=== PATIENT | male | born 1960 | race Caucasian/White ===

== ENCOUNTER 2020-02-12 13:48 | Outpatient (CLI) | payer BC, SELFPAY ==
--- NOTE | 2020-02-12 14:15 | US_ITS ---
WS: [id number] RENAL ULTRASOUND REASON FOR EXAM: LEFT RIGHT FLANK PAIN TECHNIQUE: Grayscale and Doppler ultrasound examination of the kidneys. FINDINGS: Right kidney: Right kidney measures 12.4 cm x 5.7 cm x 5.1 cm. No hydronephrosis or stones Left kidney: Left kidney measures 11.3 cm x 5.9 cm x 6.6 cm. Hydronephrosis or stones The aorta is normal measured 2.18 cm. Bladder not well distended IMPRESSION: Negative renal ultrasound
== END 2020-02-12 13:49 | disposition home or self-care (01) ==
LOC: US 13:50
PROVIDERS: Visit Provider Internal Medicine
DX: R10.12 Left upper quadrant pain (principal); R10.11 Right upper quadrant pain
CPT/HCPCS: 76770

== ENCOUNTER 2020-03-19 08:03 | Outpatient (CLI) | payer BC, SELFPAY ==
--- NOTE | 2020-03-19 08:09 | CT_ITS ---
WS: [id number] CT ABDOMEN TECHNIQUE: Noncontrast CT of the abdomen with coronal and sagittal reformatted images. CLINICAL INFORMATION: LESION OF LIVER COMPARISON: Comparison ultrasound February 12, 2020 and DLP: 888.[address] scans at [facility] use at least one of these dose optimization techniques: automat ed exposure control; mA and/or kV adjustment per patient size (includes targeted exams where dose is matched to clinical indication); or iterative reconstruction. FINDINGS: Noncontrast CT abdomen pelvis. Noncontrast kidneys are normal. No hydronephrosis. No obstructing rafita l calculi in the visualized ureters. Pelvis is not included on this examination. Adrenal glands are n ormal. Mild hepatomegaly with enlargement of the right hepatic lobe. Noncontrast liver is otherwise u nremarkable. Noncontrast spleen is normal. Normal GE junction. Lung bases are well aerated. Fatty atr ophy of the pancreas. Gallbladder is contracted. No periaortic lymphadenopathy. No abdominal lymphade nopathy. CT/CT abdomen wo con [id number] IMPRESSION: 1. No obstructing renal or ureteral calculi. Pelvis is not included on this ex amination. No hydronephrosis. 2. Liver appears unremarkable, although no contrast was administered. Mild enl argement of the right hepatic lobe. 3. Gallbladder is contracted. 4. No acute abdominal findings.
== END 2020-03-19 08:04 | disposition home or self-care (01) ==
LOC: RADWPI 08:07
PROVIDERS: Family Provider Internal Medicine; PCP Internal Medicine; Visit Provider Internal Medicine
DX: K76.89 Other specified diseases of liver (principal)
CPT/HCPCS: 74150

== ENCOUNTER 2020-08-15 06:49 | Outpatient (CLI) | payer BC, SELFPAY ==
[2020-08-15 07:25] VITALS: BMI 29.5
--- NOTE | 2020-08-15 07:48 | ECG_ITS ---
[facility] Test Date: 2020-08-15 Pat Name: Polo Britt Department: Room: Gender: Male Weed Controller: : 1960 Requested By: Fátima Palomo Order Number: [id number] Carlos Fontana MD: SANDIE MARCOS Interpretive Statements NAME OF STUDY: LEXISCAN SESTAMIBI STRESS TEST INDICATION: Chest Pain; Coronary Artery Disease NOTE: Please note that this is the electrocardiogram portion of the Lexiscan/Sestamibi stress test. The perfusion scan will be documented separately. DATA: Baseline heart rate was 59 beats per minute. Baseline blood pressure was 141/80 millimeters of mercury. Target heart rate was 163. Maximum heart rate achieved was 88. which was 53 % of the predicted target heart rate. Maximum blood pressure was 147/92 millimeters of mercury. The reason for ending the test was completion of the protocol. The patient did not experience any symptoms. ELECTROCARDIOGRAM: BASELINE: Sinus rhythm. Normal axis. Otherwise, no ST-T changes suggestive of ischemia noted. No arrhythmia noted. EXERCISE: After Lexiscan injection, no ST-T changes suggestive of ischemic noted. No arrhythmia noted. 1. EKG not suggestive of ischemia 2. Lexiscan injection unremarkable. 3. Perfusion scan will be documented separately. Electronically Signed On 08-15-2020 19:31:57 PUBLIC TRANSIT BUS DRIVER by SANDIE MARCOS [id number]
--- NOTE | 2020-08-15 07:50 | NMCV_ITS ---
NM cherie perf SPECT r/s* [id number] Polo Britt Age: 59 Gender: M : 1960 Exam Date: 08/15/2020 07:57 Ordering Phys: Fátima Gastelum MD Technologist: EDGAR Pretty Exam Location: [facility] Indications: CHEST PAIN STRESS TEST Please see separate stress test report in Ephiphany for full findings IMAGE PROTOCOL Rest/Stress 1 Lexiscan Day Radiopharmaceutical Dose (mCi) Administration Site Administered by Rest: Tc-99m 10.7 IV EDGAR Flower Sestamibi Stress:Tc-99m 32.4 IV EDGAR Flower Sestamibi Rest: 15-Aug-2020 60 Discovery 630 Stress: 15-Aug-2020 30 Discovery 630 0.4mg Lexiscan. Supine position only as patient was unable to lay prone. SPECT RESULTS Technical Quality: Excellent Raw Data Analysis: Normal Image Corrections: No attenuation or motion correction applied Summed Stress Score: 12 Summed Rest Score: 15 Summed Difference Score: 1 PERFUSION FINDINGS Large area of fixed perfusion defect noted in basal to distal inferior and distal infero lateral wall suggestive of old myocardial infarction versus scarring. FUNCTIONAL RESULTS (calculated via Gated SPECT) Stress Image LV EF (%): 52 Stress EDV (mL):125 TID: 1.01 Stress ESV (mL):60 Rest Image LV EF (%): 52 FUNCTIONAL FINDINGS: Inferior and inferolateral wall akinesis IMPRESSIONS Large area of old myocardial infarction versus scarring noted in basal to distal inferior and distal inferolateral wall without kellie-infarct ischemia. EKG segment is documented separately Darrel Kaur MD (Electronically Signed) Final Date: 15 August 2020 19:17 S
[2020-08-15] MEDS: regadenoson 0.4 Mg/5 ml Syringe IVP (08:43)
--- NOTE | 2020-08-15 08:43 | SUR.PREOP ---
Patient reports no pain or discomfort prior to the start of the procedure.
[2020-08-15 09:08] VITALS: BP 143/86; PULSE 71
== END 2020-08-15 06:50 | disposition home or self-care (01) ==
LOC: CDL 06:49
PROVIDERS: PCP Internal Medicine; Visit Provider Internal Medicine
DX: I25.2 Old myocardial infarction (principal); R07.9 Chest pain, unspecified
CPT/HCPCS: 78452; 93017; A9500; J2785

== ENCOUNTER → 2020-08-17 10:36 | Outpatient (BNVA) | payer BC, SELFPAY | PROVIDERS: PCP Internal Medicine; Visit Provider Internal Medicine | DX: U07.1 COVID-19 (principal) | CPT/HCPCS: 87635 ==

== ENCOUNTER 2020-08-21 08:02 | Outpatient (CLI) | payer BC, SELFPAY ==
--- NOTE | 2020-08-21 14:35 | PFTS_ITS ---
Date of Study:08/21/20 Date of Dictation: 08/22/2020 MECHANICS: Forced vital capacity (FVC) is reduced Forced expiratory volume in one second (FEV1) is moderately reduced FEV1/FVC is reduced. Significant response to bronchodilators noted FLOW VOLUME LOOP: Scooping of end expiratory limb suggestive of small airway obstruction . LUNG VOLUMES: Not measured DIFFUSING CAPACITY FOR CARBON MONOXIDE: Not measured . INTERPRETATION: The spirometry suggestive of moderately severe obstructive ventilatory defect with good response to bronchodilators. Please correlate clinically MTDD
== END 2020-08-21 08:03 | disposition home or self-care (01) ==
LOC: RT 08:03
PROVIDERS: PCP Internal Medicine; Visit Provider Internal Medicine
DX: R05 Cough (principal)
CPT/HCPCS: 94060; J7611

== ENCOUNTER 2021-10-08 20:00 | Outpatient (CLI) | payer OTHER, SELFPAY | END 2021-10-08 20:01 | disposition home or self-care (01) | LOC: SLEEP 10-09 06:27 | PROVIDERS: PCP Internal Medicine; Visit Provider Internal Medicine | DX: G47.10 Hypersomnia, unspecified (principal); R06.83 Snoring; R53.83 Other fatigue; G47.33 Obstructive sleep apnea (adult) (pediatric); R09.02 Hypoxemia | CPT/HCPCS: 95810 ==

== ENCOUNTER 2022-05-01 07:08 | Observation (INO) | payer OTHER, SELFPAY ==
[2022-05-01] VITALS (72 sets, daily range): BP systolic 107–155; BP diastolic 60–92; PULSE 54–85; RESP 14–26; TEMP 36.3–36.8; O2SAT 94–100; BMI 29.7
--- NOTE | 2022-05-01 07:13 | W.ED.CHESTPA ---
HPI - Chest Pain General: Chief Complaint: ER Hold Stated Complaint: chest pain Time Seen by Provider: 05/01/22 07:09 Source: patient Mode of arrival: ambulatory Limitations: no limitations History of Present Illness: 61-year-old male presents emergency room with complaints of chest discomfort. Patient has a known history of coronary disease and previously had a ST elevation [place], he underwent angiography and was stented at that time. According to his notes he has had a stent in the proximal to mid RCA which was placed in July 2018 he also had a prior stent in the LAD and the diagonal. Lexiscan sestamibi stress test July 2020 showed large area of old myocardial infarct with no kellie-infarct ischemia. States pain began yesterday he was not doing anything exertional lasted for several hours and then resolved spontaneously. Resumed again this morning that woke him up from sleep around 5 AM he took a sublingual nitro he states that improved his pain. MD complaint: chest pain Pertinent past history: coronary artery disease Onset (ago): day(s) (1) Timing of current episode: episodic Prior episodes: Yes Onset: during rest Pain location: left chest Severity: moderate Quality: sharp Relieving factors: nitroglycerin (Improved but not resolved) Exacerbating factors: nothing Associated symptoms: Reports dyspnea; Deny abdominal pain, diaphoresis, fever(s), leg edema, nausea, palpitations, sense of impending doom, syncope or vomiting Treatment prior to arrival: nitroglycerin Review of Systems Const: Denies: fever(s), chills, fatigue, malaise or diaphoresis ENMT: Denies: throat pain, ear or mastoid pain, nasal discharge or nasal congestion Card: Reports: chest pain; Denies: palpitations, irregular heart rhythm, edema or syncope Resp: Reports: dyspnea GI: Denies: abdominal pain, nausea or vomiting : Denies: flank pain, dysuria, urinary frequency or urinary urgency Skin/Breast: Denies: rash or pruritus PFSH ED PFSH: Medical History (Updated 05/01/22 @ 13:15 by Adrienne Rosales MD) BPH (benign prostatic hyperplasia) COPD (chronic obstructive pulmonary disease) Coronary artery disease Diabetes mellitus History of ST elevation myocardial infarction (STEMI) HTN (hypertension) Hyperlipidemia Hypothyroidism Tobacco dependency Surgical History History of coronary angioplasty with insertion of stent (~2017) S/P appendectomy S/P cardiac catheterization [facility] Family History Other Cancer Diabetes Heart disease Hypertension Denies family history of Anesthesia complication Bleeding disorder Social History Smoking and tobacco status: current some day smoker Second hand smoke exposure: No Alcohol intake: current Alcohol intake frequency: holidays/special occasions only Alcohol type: beer Adopted: No Caregiver/support person: Yes Lives independently: Yes Household members: spouse Housing: House Marital status: service: No Current occupational status: retired Current occupational exposures/hazards: No Pets and animals: No History of recent travel: No Sexually active: Yes Current gender identity: Male Elisabeth/Pentecostalism: Rastafari Physical Exam Const: GENERAL APPEARANCE: cooperative and comfortable ORIENTATION/CONSCIOUSNESS: Yes awake, Yes oriented to person, Yes oriented to place and Yes oriented to time HENMT: COMMON NORMALS: normocephalic, atraumatic and hearing grossly normal bilaterally HEAD & SCALP: normocephalic and atraumatic Resp: COMMON NORMALS: normal respiratory effort, No retractions, No use of accessory muscles and clear to auscultation bilaterally AUSCULTATION: clear to auscultation bilaterally Cardio: COMMON NORMALS: regular rate, regular rhythm and No murmurs present (Cardio) RATE: regular rate RHYTHM: regular rhythm GI: COMMON NORMALS: Soft to palpation and No hepatosplenomegaly present AUSCULTATION: Yes normoactive bowel sounds PALPATION: Yes Soft to palpation, No Tenderness to palpation present (GI), No Guarding due to palpation present (GI) and Yes No hepatosplenomegaly present Extremity: COMMON NORMALS: normal to inspection, capillary refill normal, no clubbing, cyanosis or edema, no calf tenderness and no pedal edema Neuro: SENSORIUM/ORIENTATION: Yes oriented to person, Yes oriented to place and Yes oriented to time Skin: COMMON NORMALS: no rashes or lesions noted GENERAL SKIN EXAM: no rashes or lesions noted Course Vital Signs: Vital signs: Vital Signs Temperature 97.4 F L 05/01/22 07:14 Pulse Rate 72 05/01/22 14:25 Respiratory Rate 16 05/01/22 14:25 Blood Pressure 129/80 05/01/22 14:25 Pulse Oximetry 96 05/01/22 14:25 Oxygen Delivery Me thod 05/01/22 14:25 MDM - Chest Pain Medical Decision Making Troponins are negative. Patient continues to have chest discomfort is very concerning and his presentation with pain that radiates into the neck left shoulder and left arm. Discussed with hospitalist and with behavioral health counselor. Child Development Associate Teacher recommends admission patient did have a stress test recently. Cardiology is agreed to see the patient determine whether or not they feel prograde proceeding to catheterization would be appropriate or trying to further maximize medical therapy. Medical Records I reviewed the patient's medical records. Lab Data I reviewed the patient's lab results. : 05/01/22 07:35 05/01/22 07:35 Radiology Impressions Chest X-Ray 05/01/22 07:14 IMPRESSION: Unremarkable chest radiograph. Laboratory Results WBC 7.8 10^3/uL (4.0-10.0) 05/01/22 07:35 RBC 4.08 10^6/uL (4.1-5.3) L 05/01/22 07:35 Hgb 12.8 g/dL (11.7-16.6) 05/01/22 07:35 Hct 37.2 % (42.0-52.0) L 05/01/22 07:35 MCV 91.2 fl (80-94) 05/01/22 07:35 MCH 31.4 pg (28.0-34.0) 05/01/22 07:35 MCHC 34.4 g/dL (30.0-36.0) 05/01/22 07:35 RDW 12.6 % (12.1-15.1) 05/01/22 07:35 Plt Count 204 10^3/cmm (130-400) 05/01/22 07:35 MPV 10.0 fL (7.4-10.4) 05/01/22 07:35 Neut % (Auto) 49.4 % 05/01/22 07:35 Lymph % (Auto) 32.1 % 05/01/22 07:35 Lares % (Auto) 11.3 % 05/01/22 07:35 Eos % (Auto) 5.8 % 05/01/22 07:35 Baso % (Auto) 1.0 % 05/01/22 07:35 Neut # (Auto) 3.86 10^3/uL (1.8-7.7) 05/01/22 07:35 Lymph # (Auto) 2.5 10^3/uL (0.8-4.8) 05/01/22 07:35 Lares # (Auto) 0.9 10^3/uL (0.2-0.9) 05/01/22 07:35 Eos # (Auto) 0.5 10^3/uL (0.0-0.8) 05/01/22 07:35 Baso # (Auto) 0.1 10^3/uL (0.0-0.1) 05/01/22 07:35 Nucleated RBC % (auto) 0 % 05/01/22 07:35 Nucleated RBCs # 0.0 /100WBC 05/01/22 07:35 Sodium 140 mmol/L (136-145) 05/01/22 07:35 Potassium 3.4 mmol/L (3.5-5.1) L 05/01/22 07:35 Chloride 107 mmol/L (98-107) 05/01/22 07:35 Carbon Dioxide 23 mmol/L (22-29) 05/01/22 07:35 Anion Gap 13.4 (5-19) 05/01/22 07:35 BUN 12 mg/dL (6-20) 05/01/22 07:35 Creatinine 0.7 mg/dL (0.7-1.2) 05/01/22 07:35 GFR Calculation 115.4 mL/min (90-130) 05/01/22 07:35 Glucose 174 mg/dL (65-115) H 05/01/22 07:35 Calculated Osmolality 294 mOsm/kg (285-295) 05/01/22 07:35 Calcium 8.4 mg/dL (8.5-10.5) L 05/01/22 07:35 Total Bilirubin 0.4 mg/dL (0.15-1.2) 05/01/22 07:35 AST 16 U/L (0-40) 05/01/22 07:35 ALT 28 U/L (0-41) 05/01/22 07:35 Alkaline Phosphatase 95 U/L (40-130) 05/01/22 07:35 Troponin T Baseline 40 ng/L (0-15) H 05/01/22 07:35 Troponin T 120 Minute 32.06 ng/L (0-15) H 05/01/22 09:35 Delta Troponin T -7.94 ABS# (0-10) L 05/01/22 09:35 Troponin T Hi Sens 6Hr 25.91 ng/L (0-15) H 05/01/22 01:50 Troponin T Hi Sens 6Hr Delta -14.09 ng/L (0-12) L 05/01/22 01:50 Total Protein 6.7 g/dL (6.6-8.7) 05/01/22 07:35 Albumin 3.7 g/dL (3.5-5.2) 05/01/22 07:35 Globulin 3.0 g/dL (1.3-4.6) 05/01/22 07:35 TSH 9.51 uIU/mL (0.27-4.20) H 05/01/22 07:35 Discharge Plan Discharge Patient Disposition: Placed in Observation Admit Provider: Justin Mcgowan Clinical Impression: Chest pain, Coronary artery disease, HTN (hypertension) Coding Level of Care Code ED Real Estate Professor for Chg Fwd Exam Detailed
--- NOTE | 2022-05-01 07:14 | ECG_ITS ---
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 Measurements Intervals [place] Rate: 83 P: 72 [place]: 164 QRS: 27 QRSD: 105 T: 54 QT: 373 QTc: 440 Interpretive Statements SINUS RHYTHM INCOMPLETE RIGHT BUNDLE BRANCH BLOCK [90+ ms QRS DURATION, TERMINAL R IN V1/V2, 40+ ms S IN I/aVL/V4/V5/V6] Compared to ECG 08/20/2018 05:36:57 Incomplete right bundle-branch block now present Electronically Signed On 05-01-2022 15:39:31 CDT by Delores Thomas M.D. [id number]
--- NOTE | 2022-05-01 07:14 | XR_ITS ---
WS: [id number] Exam: XR chest 1V portable [id number] Date/Time of Exam: 05/01/2022 7:20 AM Reason For Exam: chest pain Comparison 07/26/2017. Findings: The lungs are clear and fully expanded. Costophrenic angles are sharp. No infiltrates. Bronchovascula r relief appears normal. Cardiac silhouette is unremarkable. Bony elements are intact. XR/XR chest 1V portable [id number] IMPRESSION: Unremarkable chest radiograph.
[2022-05-01] MEDS: aspirin 81 mg Chew Tablet 324 MG PO (07:44)
[2022-05-01] MEDS: nitroglycerin 1 gm/inch oint Pkt 1 INCH TOPICAL ×3 (07:45→19:39)
[2022-05-01 07:54] LABS: Basophils # 0.1 10^3/uL (0.0-0.1); Eosinophils # 0.5 10^3/uL (0.0-0.8); Eosinophils % 5.8 %; Hematocrit 37.2 % (42.0-52.0); Hemoglobin 12.8 g/dL (11.7-16.6); Lymphocytes # 2.5 10^3/uL (0.8-4.8); Lymphocytes % 32.1 %; Mean Corpuscular HGB Conc 34.4 g/dL (30.0-36.0); Mean Corpuscular Hemoglobin 31.4 pg (28.0-34.0); Mean Corpuscular Volume 91.2 fl (80-94); Monocytes # 0.9 10^3/uL (0.2-0.9); Monocytes % 11.3 %; Neutrophils # 3.86 10^3/uL (1.8-7.7); Neutrophils % 49.4 %; Nucleated Red Blood Cells % 0 %; Platelet Count 204 10^3/cmm (130-400); Red Blood Count 4.08 10^6/uL (4.1-5.3); Red Cell Distribution Width 12.6 % (12.1-15.1); White Blood Count 7.8 10^3/uL (4.0-10.0)
[2022-05-01 08:08] LABS: Alanine Aminotransferase 28 U/L (0-41); Albumin Level 3.7 g/dL (3.5-5.2); Alkaline Phosphatase 95 U/L (40-130); Anion Gap 13.4 (5-19); Aspartate Amino Transferase 16 U/L (0-40); Blood Urea Nitrogen 12 mg/dL (6-20); Calcium 8.4 mg/dL (8.5-10.5); Carbon Dioxide 23 mmol/L (22-29); Chloride 107 mmol/L (98-107); Glomerular Filtration Rate 115.4 mL/min (90-130); Glucose 174 mg/dL (65-115); Osmolality Calculated 294 mOsm/kg (285-295); Potassium 3.4 mmol/L (3.5-5.1); Sodium 140 mmol/L (136-145); Total Bilirubin 0.4 mg/dL (0.15-1.2); Total Protein 6.7 g/dL (6.6-8.7)
[2022-05-01 08:09] LABS: Troponin(5th) Baseline 40 ng/L (0-15)
--- NOTE | 2022-05-01 09:15 | ECG_ITS ---
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 Measurements Intervals [place] Rate: 64 P: 74 [place]: 167 QRS: 53 QRSD: 122 T: 58 QT: 432 QTc: 446 Interpretive Statements SINUS RHYTHM POSSIBLE RIGHT VENTRICULAR CONDUCTION DELAY [RSR (QR) IN V1/V2] Compared to ECG 08/20/2018 05:36:57 No significant changes Electronically Signed On 05-01-2022 15:55:08 CDT by Delores Thomas M.D. [id number]
[2022-05-01 10:06] LABS: Troponin 5 2HR 32.06 ng/L (0-15)
[2022-05-01 10:07] LABS: Troponin 5 2HR Delta -7.94 ABS# (0-10)
--- NOTE | 2022-05-01 12:18 | P.HP_ITS ---
Providers/Chief Complaint Admitting Physician: Justin Mcgowan MD, hospitalist Primary Care Provider: Fátima Gastelum MD Chief Complaint: chest pain History of Present Illness Polo Britt is a 61 year old male who presents to the hospital with complaints of chest discomfort. He reports that this first occurred yesterday, around 4:56 in the afternoon lasting 1 hour, occurring at rest. This was a pressure-like feeling associated with some dizziness. He laid down, took an aspirin, and reports it finally faded. This morning discomfort returned around 3 AM in the center of his chest awakening him from sleep. This gradually faded away. It recurred at 5 AM. At that time it radiated to his jaw, associated with some shortness of breath. He eventually took 2 nitroglycerin with significant improvement of the pain, but his pain was still present he came to the emergency department. He reports nitroglycerin ointment was placed in the emergency department and pain has now gone away completely. He reports no recent illness with fever or cough. He reports he is very concerned that this may be cardiac pain secondary to his previous procedures. He has been nauseated with the pain but did not have any vomiting. No bleeding history. Denies any blood in stool, black or tarry stool, severe reflux. He has had fatigue lately. Last angiogram July 2018 with RCA drug-eluting stent placed. Previous to that in May 2017 he received 2 drug-eluting stents, LAD and diagonal. Review of Systems General: Reports: 10 or more systems reviewed and unremarkable except in HPI and below Const: Reports: fatigue; Denies: fever(s) or chills Eyes: Denies: change in vision ENMT: Denies: throat pain Card: Reports: chest pain Resp: Reports: dyspnea GI: Reports: nausea; Denies: abdominal pain, vomiting, hematemesis, hematochezia or melena : Denies: flank pain Musc: Denies: neck pain Skin/Breast: Denies: rash Neuro: Denies: headache(s) Psych: Denies: anxiety Endo: Denies: polyuria Jonn/Lymph: Denies: easy bruising All/Imm: Denies: urticaria Medications/Allergies Home Medications Medication Instructions Recorded Confirmed Last Taken Type aspirin 81 mg tablet,delayed 81 mg PO DAILY 11/23/19 05/01/22 04/30/22 History release (Adult Low Dose Aspirin) atorvastatin 40 mg tablet 20 mg PO DAILY 11/23/19 05/01/22 04/30/22 History levothyroxine 100 mcg capsule 100 mcg PO DAILY 11/23/19 05/01/22 04/30/22 History nitroglycerin 0.4 mg sublingual 0.4 mg sublingual Q5M PRN Chest 11/23/19 05/01/22 05/01/22 History tablet (Nitrostat) Pain carvedilol 12.5 mg tablet 12.5 mg PO BID 3 months #180 tabs 02/16/20 05/01/22 04/30/22 Rx albuterol sulfate 90 mcg/actuation 2 puff inhalation Q6H PRN 09/19/20 05/01/22 Unknown History aerosol inhaler Shortness Of Breath Or Wheezing ticagrelor 90 mg tablet (Brilinta) 90 mg PO BID #60 tabs 12/19/21 05/01/22 04/30/22 Rx amlodipine 5 mg tablet 5 mg PO DAILY #30 tabs 04/22/22 05/01/22 Unknown Rx lisinopril 20 0.5 tab PO DAILY 04/22/22 05/01/22 05/01/22 History mg-hydrochlorothiazide 25 mg tablet metformin 500 mg tablet 500 mg PO DAILY 04/22/22 05/01/22 04/30/22 History fluticasone fur. 100 mcg-umeclid 1 inh inhalation DAILY 05/01/22 05/01/22 04/30/22 History 62.5 mcg-vilant 25 mcg inhalat.powder (Trelegy Ellipta) montelukast 10 mg tablet 10 mg PO DAILY 05/01/22 05/01/22 04/30/22 History prednisolone 5 mg tablet 10 mg PO DAILY PRN Shortness Of 05/01/22 05/01/22 04/30/22 History Breath Allergies Allergy/AdvReac Type Severity Reaction Status Date / Time No Known Allergies Allergy Verified 05/01/22 08:42 PFSH Acute PFSH: Medical History (Updated 05/01/22 @ 12:28 by Justin Mcgowan MD) BPH (benign prostatic hyperplasia) COPD (chronic obstructive pulmonary disease) Coronary artery disease Diabetes mellitus History of ST elevation myocardial infarction (STEMI) HTN (hypertension) Hyperlipidemia Hypothyroidism Tobacco dependency Surgical History History of coronary angioplasty with insertion of stent (~2017) S/P appendectomy S/P cardiac catheterization [facility] Family History Other Cancer Diabetes Heart disease Hypertension Denies family history of Anesthesia complication Bleeding disorder Social History Smoking and tobacco status: current some day smoker Second hand smoke exposure: No Alcohol intake: current Alcohol intake frequency: holidays/special occasions only Alcohol type: beer Adopted: No Caregiver/support person: Yes Lives independently: Yes Household members: spouse Housing: House Marital status: service: No Current occupational status: retired Current occupational exposures/hazards: No Pets and animals: No History of recent travel: No Sexually active: Yes Current gender identity: Male Elisabeth/Confucianist: Rastafari Vitals/I&O/Wt Last Vital Signs Temp 97.4 F L 05/01/22 07:14 Pulse 82 05/01/22 12:15 Resp 14 05/01/22 12:15 BP 142/68 05/01/22 12:15 Pulse Ox 97 05/01/22 12:15 O2 Del Method 05/01/22 09:18 Weight last 48 hrs Weight 105.233 kg Physical Exam Narrative: General exam is a conversant white male, no current distress and denying any chest discomfort currently. HEENT: Atraumatic normocephalic. Pupils equally round. Oropharynx clear. Neck is supple no lymphadenopathy or thyromegaly Cardiovascular regular rate and rhythm, no murmur Lungs diminished breath sounds bilaterally but no wheezes Abdomen is soft with positive bowel sounds. No obvious organomegaly exam is deferred Extremities no cyanosis clubbing. Trace edema is noted. Skin no rash. Refill brisk Neuro no focal deficits Data : 05/01/22 07:35 05/01/22 07:35 Other Labs: EKG demonstrates sinus rhythm, normal axis, right bundle branch block Chest x-ray no infiltrate LFTs normal Troponin baseline 40 with repeat of 32 A&P Assessment and plan (1) Chest pain: Patient presents with concerning chest discomfort. Description is worrisome for unstable angina. Troponin is elevated and decreasing, and considering multiple recurrences of pain could not rule out a non-ST elevation myocardial infarction. Cardiology consultation will be obtained Echocardiogram Continue aspirin, Brilinta, carvedilol, topical nitrates. Add therapeutic Lovenox Telemetry Status: Acute (2) Hyperlipidemia: Continue statin Check lipid profile in a.m. May need increased dosing Status: Acute (3) HTN (hypertension): Continue home medication Status: Acute (4) COPD (chronic obstructive pulmonary disease): No evidence of exacerbation Initiate budesonide DuoNeb as needed Status: Acute (5) Hypokalemia: Supplement orally Status: Acute Plan History of hypothyroidism, check TSH Multiple other medical problems as listed in past medical history Full code Lovenox will suffice for DVT prophylaxis Attestations Medical Necessity Statement*: Will need less than 2 midnight stay for evaluation of chest discomfort Coding Level of Care Code Acute Agricultural Engineer for Chg Fwd Diagnoses Chest pain R07.9 Hyperlipidemia E78.5 HTN (hypertension) I10 COPD (chronic obstructive pulmonary disease) J44.9 Hypokalemia E87.6
--- NOTE | 2022-05-01 12:26 | USCV_ITS ---
Polo Britt Age: 61 Gender: M : 1960 Exam Date: 05/01/2022 12:41 Ordering Phys: Justin Mcgowan MD Technologist: SINGH Exam Location: [facility] [place] Indication: chest pain BP: 125 / 62 HR: 62 Rhythm: Sinus Technical Quality: Adequate MEASUREMENTS (Male / Female) Normal Values 2D ECHO LV Diastolic Diameter PLAX 4.5 cm 4.2 - 5.9 / 3.9 - 5.3 cm LV Systolic Diameter PLAX 3.3 cm IVS Diastolic Thickness 1.5 cm 0.6 - 1.0 / 0.6 - 0.9 cm IVS Systolic Thickness 1.4 cm LVPW Diastolic Thickness 1.1 cm 0.6 - 1.0 / 0.6 - 0.9 cm LVPW Systolic Thickness 1.3 cm LVOT Diameter 2.0 cm LV Ejection Fraction 2D Teich 54.7 % LV Ejection Fraction MOD 2C 51.8 % LV Ejection Fraction 2C AL 53.3 % LA Diameter 3.6 cm Aorta at Sinotubular Diameter 2.9 cm IVC Diameter 0.8 cm M-MODE LV Diastolic Diameter MM 4.6 cm 4.2 - 5.9 / 3.9 - 5.3 cm LV Systolic Diameter MM 3.2 cm LV Ejection Fraction MM Teich 60.0 % IVS Diastolic Thickness MM 1.1 cm 0.6 - 1.0 / 0.6 - 0.9 cm IVS Systolic Thickness MM 1.6 cm LVPW Diastolic Thickness MM 1.4 cm 0.6 - 1.0 / 0.6 - 0.9 cm LVPW Systolic Thickness MM 1.9 cm RV Diastolic Diameter MM 1.7 cm Aortic Annulus Diameter 3.2 cm LA Ao Ratio MM 1.3 MV E Point Septal Separation 1.2 cm DOPPLER AV Peak Velocity 140.0 cm/s LVOT Peak Velocity 102.0 cm/s AV Area Cont Eq vti 2.3 cm squared AV Area Cont Eq pk 2.4 cm squared MV Area PHT 3.1 cm squared Mitral E to A Ratio 1.1 MV E' Velocity 36.0 cm/s Mitral E to MV E' Ratio 6.5 Mitral E to LV E' Lateral Ratio 6.2 Mitral E to LV E' Septal Ratio 7.1 TR Peak Velocity 187.0 cm/s TR Peak Gradient 14.0 mmHg TV Peak E Velocity 80.0 cm/s Right Atrial Pressure 3.0 mmHg Pulmonary Artery Systolic Pressu 17.0 mmHg RV Acceleration Time 0.1 s FINDINGS Left Ventricle Normal left ventricular size, systolic function and mildly increased left ventricular wall thickness, with no diagnostic regional wall motion abnormalities. Left ventricular ejection fraction is estimated at 55 %. Normal diastolic function. Right Ventricle Normal right ventricular size and systolic function. Right ventricular systolic pressure 21 mmHg. Right Atrium Normal right atrial size. Left Atrium Normal left atrial size. Mitral Valve Structurally normal mitral valve. No mitral valve stenosis. No mitral valve regurgitation. Aortic Valve Structurally normal trileaflet aortic valve. No aortic valve stenosis. No aortic valve regurgitation. Tricuspid Valve Structurally normal tricuspid valve. No tricuspid valve stenosis. Trace tricuspid valve regurgitation. Pulmonic Valve Pulmonic valve not well visualized. No pulmonary valve stenosis. No pulmonary valve regurgitation. Pericardium No pericardial effusion. Aorta Normal size aortic root and proximal ascending aorta. IVC Normal IVC dimension with >50% respiratory change of the inferior vena cava. CONCLUSIONS 1. Normal left ventricular size, systolic function and mildly increased left ventricular wall thickness, with no diagnostic regional wall motion abnormalities. Left ventricular ejection fraction is estimated at 55 %. Normal diastolic function. 2. Normal right ventricular size and systolic function. 3. No significant valvular abnormality. 4. There may not have been any significant change when compared to prior study dated 04/19/2019. Adrienne Rosales MD (Electronically Signed) Final Date: 01 May 2022 14:24 S
[2022-05-01] MEDS: enoxaparin 100 mg/mL Syringe SUBCUT (13:03)
[2022-05-01] MEDS: potassium chloride ER 20 mEq Tablet 40 MEQ PO (13:04)
--- NOTE | 2022-05-01 13:11 | PM.CONSULT ---
Providers/Reason For Consult Consulting Physician/Specialty*: Dr. Rosales, Cardiology Reason for Consult*: Chest pain Attending Physician: Justin Mcgowan MD Primary Care Provider: Fátima Gastelum MD History of Present Illness History of Present Illness Polo Britt is a 61 year old male with past history of ST elevation TX, status post drug-eluting stent to LAD and diagonal at an outside hospital, s/p CANDELARIA to Px to mid RCA in 07/[address] Kaur, HTN, HLD, type 2 DM on OHA and chronic active smoker.? He is a 2 pack smoker. He is here for evaluation of chest pressure. He was just seen in office and was started on amlodipine. Imdur causes headaches. He has not even started that yet. Two- three episodes of chest discomfort reported yesterday night and then again this morning. The chest pain last night while at friend's house did not take NTG with some radiation to upper chest and no associated N/V/ diaphoresis. He returned home around 5 pm and felt tired and then woke up around 3 am with sharp chest pain and then again later in the morning. He took 2 NTG and then as pain continued came to the ER. No significant EKG changes. Troponin T 40--> 32--> 25. Patient CP free at the time of exam. Review of Systems General: Reports: 10 or more systems reviewed and unremarkable except in HPI and below Const: Reports: fatigue; Denies: fever(s) or chills Eyes: Denies: change in vision ENMT: Denies: throat pain Card: Reports: chest pain and dyspnea on exertion; Denies: edema, swelling of feet/ankles, lightheadedness or orthopnea Resp: Reports: dyspnea GI: Reports: nausea; Denies: abdominal pain, vomiting, hematemesis, hematochezia or melena : Denies: flank pain or hematuria Musc: Denies: neck pain Skin/Breast: Denies: rash Neuro: Denies: headache(s), weakness in extremities, frequent falls or dizziness Psych: Denies: anxiety Endo: Denies: polyuria Jonn/Lymph: Denies: easy bruising All/Imm: Denies: urticaria Medications/Allergies Home Medications Medication Instructions Recorded Confirmed Last Taken Type aspirin 81 mg tablet,delayed 81 mg PO DAILY 11/23/19 05/01/22 04/30/22 History release (Adult Low Dose Aspirin) atorvastatin 40 mg tablet 20 mg PO DAILY 11/23/19 05/01/22 04/30/22 History levothyroxine 100 mcg capsule 100 mcg PO DAILY 11/23/19 05/01/22 04/30/22 History nitroglycerin 0.4 mg sublingual 0.4 mg sublingual Q5M PRN Chest 11/23/19 05/01/22 05/01/22 History tablet (Nitrostat) Pain carvedilol 12.5 mg tablet 12.5 mg PO BID 3 months #180 tabs 02/16/20 05/01/22 04/30/22 Rx albuterol sulfate 90 mcg/actuation 2 puff inhalation Q6H PRN 09/19/20 05/01/22 Unknown History aerosol inhaler Shortness Of Breath Or Wheezing ticagrelor 90 mg tablet (Brilinta) 90 mg PO BID #60 tabs 12/19/21 05/01/22 04/30/22 Rx amlodipine 5 mg tablet 5 mg PO DAILY #30 tabs 04/22/22 05/01/22 Unknown Rx lisinopril 20 0.5 tab PO DAILY 04/22/22 05/01/22 05/01/22 History mg-hydrochlorothiazide 25 mg tablet metformin 500 mg tablet 500 mg PO DAILY 04/22/22 05/01/22 04/30/22 History fluticasone fur. 100 mcg-umeclid 1 inh inhalation DAILY 05/01/22 05/01/22 04/30/22 History 62.5 mcg-vilant 25 mcg inhalat.powder (Trelegy Ellipta) montelukast 10 mg tablet 10 mg PO DAILY 05/01/22 05/01/22 04/30/22 History prednisolone 5 mg tablet 10 mg PO DAILY PRN Shortness Of 05/01/22 05/01/22 04/30/22 History Breath Allergies Allergy/AdvReac Type Severity Reaction Status Date / Time No Known Allergies Allergy Verified 05/01/22 08:42 Current Medications Generic Name Dose Route Start Last Admin Trade Name Freq PRN Reason Stop Dose Admin Enoxaparin Sodium 100 mg 05/01/22 12:45 05/01/22 13:03 Enoxaparin 100 Mg/Ml Syringe SUBCUT 100 mg Q12H KATIE Administration PFSH Acute PFSH: Medical History BPH (benign prostatic hyperplasia) COPD (chronic obstructive pulmonary disease) Coronary artery disease Diabetes mellitus History of ST elevation myocardial infarction (STEMI) HTN (hypertension) Hyperlipidemia Hypothyroidism Tobacco dependency Surgical History History of coronary angioplasty with insertion of stent (~2017) S/P appendectomy S/P cardiac catheterization [facility] Family History Other Cancer Diabetes Heart disease Hypertension Denies family history of Anesthesia complication Bleeding disorder Social History Smoking and tobacco status: current some day smoker Second hand smoke exposure: No Alcohol intake: current Alcohol intake frequency: holidays/special occasions only Alcohol type: beer Adopted: No Caregiver/support person: Yes Lives independently: Yes Household members: spouse Housing: House Marital status: service: No Current occupational status: retired Current occupational exposures/hazards: No Pets and animals: No History of recent travel: No Sexually active: Yes Current gender identity: Male Elisabeth/Scientologist: Protestant Vitals/I&O/Wt Last Vital Signs Temp 97.4 F L 05/01/22 07:14 Pulse 82 05/01/22 12:15 Resp 14 05/01/22 12:15 BP 142/68 05/01/22 12:15 Pulse Ox 97 05/01/22 12:15 O2 Del Method 05/01/22 09:18 Weight last 48 hrs Weight 232 lb Physical Exam Narrative: GENERAL: Averagely built and averagely nourished in no acute distress HEENT: Extraocular movement intact. No pallor or icterus. NECK: central trachea, CARDIOVASCULAR SYSTEM: S1-S2 regular. No murmur rubs or gallops. RESPIRATORY SYSTEM: Chest clear to auscultation. No wheezes rhonchi or rubs heard. No use of accessory muscles. ABDOMEN: Soft, nontender and nondistended. Normal bowel sounds present. No hepatosplenomegaly appreciated. EXTREMITIES: No cyanosis or clubbing. No edema. No signs of chronic venous insufficiency. 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 No focal neurological deficits. SKIN: Normal turgor and temperature. PSYCH: Normal insight and judgment. Data : 05/01/22 07:35 05/01/22 07:35 Other data: Lexiscan stress test (08/15/2020) ?IMPRESSIONS ?Large area of old myocardial infarction versus scarring noted in basal to ?distal inferior and distal inferolateral wall without kellie-infarct ischemia.? ?EKG segment is documented separately 08/21/20 Pulmonary Function test INTERPRETATION: The spirometry suggestive of moderately severe obstructive ventilatory defect with good response to bronchodilators.? Please correlate clinically TTE (04/19/2019) ?CONCLUSIONS ?1-Normal left ventricular cavity size. Normal left ventricular ?systolic function. No regional wall motion abnormalities. Left ?ventricular ejection fraction is estimated at 55 %. Normal ?diastolic function. ?2-There is no pericardial effusion. ?3-No significant valve abnormalities. ?4-Pulmonary artery systolic pressure is within normal limits. ?5-Right atrial pressure is around 5 mm of mercury. ?6-There are no prior echocardiogram studies to compare. [facility] (08/19/2018) Diagnostic Cath Status: ? ? Urgent Diagnostic Findings ? LM has 0% stenosis. ? LAD has 0% stenosis. ? CX has 0% stenosis. ? mLAD to dLAD: Minimal luminal irregularities, JOYA: 3 flow. ? pRCA to Mid Right Coronary Artery: Severe 80% stenosis, JOYA: 2 flow. ? Coronary angiography shows right dominance. PCI Status: Urgent PCI Indication: New Onset Angina <= 2 months Interventional Findings pRCA to Mid Right Coronary Artery: 80% stenosis treated with Drug Eluting Stent. 0% residual stenosis, JOYA: 3 flow. Patient continues to have chest pain despite of maximal medical management. Patient is high risk for acute coronary syndrome he has previously placed LAD stent at an outside hospital at that time he was told that he has nonobstructive 40-50% lesion of the RCA. Successful PCI to mid RCA with drug-eluting stent. Excellent angiographic result with JOYA-3 flow was achieved. Conclusions There is severe coronary artery disease with one vessel disease. pRCA to Mid Right Coronary Artery was treated with Drug Eluting Stent. A&P Assessment and plan (1) Chest pain: Concern for unstable angina H/O CAD with 3 stents, last one in 2018 -No residual lesions on the last [facility]. Risks and benefits were discussed with the patients. Possible complications including risk of heart attack stroke and , coronary perforation, arrhythmia, cardiac tamponade in urgent CABG were discussed with the patient as well. Plan is to proceed for the procedure at the earliest. Status: Acute (2) Coronary artery disease: Status: Acute (3) HTN (hypertension): Status: Acute (4) Hyperlipidemia: Status: Acute (5) COPD (chronic obstructive pulmonary disease): Status: Acute (6) Diabetes mellitus: Status: Acute Plan Chronic active smoker Mild hypokalemia Thank you for allowing me to participate in patient's care. Please feel free to call with questions or concerns. Consult Attestations Time Spent in Patient Care: Greater than 35 minutes Coding Level of Care Code Acute Manager Creative Services for Perla Fwd Diagnoses Chest pain R07.9 Coronary artery disease I25.10 HTN (hypertension) I10 Hyperlipidemia E78.5 COPD (chronic obstructive pulmonary disease) J44.9 Diabetes mellitus E11.9
[2022-05-01 13:14] LABS: Thyroid Stimulating Hormone 9.51 uIU/mL (0.27-4.20)
--- NOTE | 2022-05-01 13:14 | ECG_ITS ---
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 Measurements Intervals [place] Rate: 64 P: 10 PA: 121 QRS: 43 QRSD: 118 T: 49 QT: 435 QTc: 451 Interpretive Statements SINUS RHYTHM POSSIBLE RIGHT VENTRICULAR CONDUCTION DELAY [RSR (QR) IN V1/V2] Compared to ECG 05/01/2022 09:15:32 No significant changes Electronically Signed On 05-01-2022 15:56:16 CDT by Delores Thomas M.D. [email or web address]
[2022-05-01 14:15] LABS: Troponin 5 6HR 25.91 ng/L (0-15)
[2022-05-01] MEDS: famotidine 20 mg Tablet PO (18:08)
[2022-05-01] MEDS: ticagrelor 90 mg Tablet PO (18:08)
[2022-05-01] MEDS: carvedilol 12.5 mg Tablet PO (18:08)
--- NOTE | 2022-05-01 18:26 | PC.NURSE ---
pt here from ER via wheelchair. no c/o pain. bedside report received.
[2022-05-01] MEDS: ipratropium-albuterol 3 mL Neb INHALATION (19:56)
[2022-05-01] MEDS: budesonide 0.5 mg/2 mL Neb INHALATION (19:56)
[2022-05-02] VITALS (75 sets, daily range): BP systolic 128–164; BP diastolic 68–99; PULSE 55–90; RESP 14–26; O2SAT 92–98
[2022-05-02] MEDS: enoxaparin 100 mg/mL Syringe SUBCUT (01:13)
[2022-05-02] MEDS: nitroglycerin 1 gm/inch oint Pkt 1 INCH TOPICAL (01:13)
[2022-05-02 04:13] LABS: Basophils # 0.1 10^3/uL (0.0-0.1); Basophils % 0.9 %; Eosinophils # 0.5 10^3/uL (0.0-0.8); Eosinophils % 6.3 %; Hematocrit 37.3 % (42.0-52.0); Hemoglobin 12.7 g/dL (11.7-16.6); Lymphocytes # 2.1 10^3/uL (0.8-4.8); Mean Corpuscular Hemoglobin 31.1 pg (28.0-34.0); Mean Corpuscular Volume 91.2 fl (80-94); Mean Platelet Volume 10.5 fL (7.4-10.4); Monocytes # 0.7 10^3/uL (0.2-0.9); Monocytes % 8.8 %; Neutrophils # 4.96 10^3/uL (1.8-7.7); Neutrophils % 58.8 %; Nucleated Red Blood Cells % 0 %; Platelet Count 203 10^3/cmm (130-400); Red Blood Count 4.09 10^6/uL (4.1-5.3); Red Cell Distribution Width 12.7 % (12.1-15.1); White Blood Count 8.4 10^3/uL (4.0-10.0)
[2022-05-02 04:34] LABS: Alanine Aminotransferase 28 U/L (0-41); Albumin Level 3.5 g/dL (3.5-5.2); Alkaline Phosphatase 96 U/L (40-130); Anion Gap 14.9 (5-19); Aspartate Amino Transferase 17 U/L (0-40); Blood Urea Nitrogen 12 mg/dL (6-20); Calcium 8.2 mg/dL (8.5-10.5); Carbon Dioxide 22 mmol/L (22-29); Chloride 110 mmol/L (98-107); Chol HDL Ratio 4.75 mg/dL (1.0-5.00); Cholesterol 133 mg/dL (0-200); Globulin 2.8 g/dL (1.3-4.6); Glomerular Filtration Rate 115.4 mL/min (90-130); Glucose 89 mg/dL (65-115); HDL Cholesterol 28 mg/dL (60-100); LDL Cholesterol Calculated 68 mg/dL (50-129); LDL HDL Ratio 2.43 RATIO (0.00-3.22); Osmolality Calculated 295 mOsm/kg (285-295); Potassium 3.9 mmol/L (3.5-5.1); Sodium 143 mmol/L (136-145); Total Bilirubin 0.5 mg/dL (0.15-1.2); Total Protein 6.3 g/dL (6.6-8.7); Triglycerides 185 mg/dL (0-150)
[2022-05-02] MEDS: sodium chloride 0.9% 1,000 ML 50 ML IV (06:00)
--- NOTE | 2022-05-02 06:45 | XACV_ITS ---
Exam Room: [facility] Ht: 188 cm Wt: 105 kg BSA: 2.37 m2 Gender: Male : 1960 Any Known Allergies: No known allergies Exam Priority: Routine Procedure(s): Procedure Description: Diagnostic procedure Procedure Description: Coronary Angiography Procedure Description: Pressure Wire Diagnostic Cath Status: Urgent Diagnostic Findings * Coronary angiography shows right dominance. * Normal Left main with no stenosis. * Normal circumflex with minor luminal irregularities. * Patent mid LAD and first diagonal stent. Mid LAD distal to stent with 50-60% stenosis. * Patent proximal to mid RCA stent with minor luminal irregularities. PCI Status: Elective Interventional Findings * IFR of the mid LAD distal to the stent is 0.92. Conclusions 1. Moderate mid LAD 50-60% stenosis not significant by iFR (0.92). 2. Patent mid LAD, first diagonal and proximal to mid RCA stents. Recommendations * Continue current medical management and risk factor modification. Pressures Phase:Rest AO : 115 / 82 ( 99 ) @ 8:43:00 AM 158 / 85 ( 113 ) @ 9:32:00 AM Clinical Evaluation EBL: 5mL-10mL Procedural Details Procedure Consent Obtained. Pre-Procedure Time Out. Identified patient by full name and date of as verbalized by the patient/guarantor. Does the consent match the physician's order: Yes. Accurate & Complete Informed Consent: Yes. Inpatient/Outpatient History & Physical on Chart: Yes. If H&P is completed, is and addenduem needed: No. Visualize and Verify Site with Patient/Guarantor: N/A. Relevant Radiology Images available: Yes. The risks, benefits, and alternatives of sedation and/or procedure were discussed by physician. The patient agrees to continue. Procedure started. [facility] Clinical Fraility Score: 3: Managing Well. 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 Chest Pain Symptom Assessment: Typical Angina Symptoms. Cardiovascular Instability: No. Correct patient, site and procedure confirmed by cath team. PERRLA. Strong, equal hand wire frame maker bilaterally. Lungs clear x 5 lobes. IV Site on Arrival: 18 gauge in the left anticubital. IV Fluids: 0.9% NaCl at KVO. 100 mL infused prior to laboratory analyst. Pre Procedural Pulses: bilateral radial was 3+. Pre Procedural Pulses: bilateral posterior tibial was 2+. Pre Procedural Pulses: bilateral dorsalis pedis was 2+. Oxygen started at 2liters/min via nasal canula. right groin was prepped with chloroprep then draped in the usual sterile fashion. right radial was prepped with chloroprep then draped in the usual sterile fashion. Physician notified. Baseline sample Acquired. HR: 66 BPM. Equipment: 6F - Femoral. Cardiac Cath Pack. ACIST Manifold Kit Model BT 2000. Heparinized Saline (2 units/mL), 1000 mL bag. Physician arrived. Patient's spouse is in the radiology waiting room. Dr. Rosales will update at the completion of the procedure. Physician scrubbed in. Immediate Pre-Procedure Time Out. Correct Patient: Yes; Correct Procedure: Yes; Correct Site: Yes; Correct Patient Position: Yes; Correct Supplies: Yes; Dried Flammable Prep: Yes; Blood Products Available: N/A;. Lidocaine 1% infiltrated to the right radial. Arterial access obtained. A 5 ku[place]i TIG catheter in over the standard J wire. Multiple views taken of left coronary artery. Catheter redirected to the RCA, unable to cannulate. Catheter removed over the standard J wire. A 5 ku[place]i 3DRC catheter in over the standard J wire. 3DRC unable to cannulate, removed over the standard J wire. A 5 ku[place]i JR4 catheter in over the standard J wire, unable to cannulate, removed. A 5 ku[place]i AL1 catheter in over the standard J wire. Dr. Rosales away from scrub table to confer with Dr. Navarrete. AL1 unable to cannulate, removed over the standard J wire. A 5 ku[place]i TIG catheter in over the standard J wire. Multiple views taken of right coronary artery. Catheter removed over the standard J wire. Dr. Rosales away from scrub table to confer with Dr. Navarrete. Dr. Rosales scrunbbed out. Dr. Rosales and Dr. Navarrete out to update the spouse in the waiting room. Dr. Navarrete scrubbed in to perform intervention. 6 ku[place]i XB 3.5 guide catheter was inserted over the wire. iFR guidewire was advanced through the guide catheter to lesion in the mid LAD. iFR guidewire normalized and advanced past the lesion in the Mid LAD. iFR measurement obtained=0.92. iFR wire out. Guide catheter out. Dr. Navarrete scrubbed out. A TR Band was successful obtaining hemostatsis at the Right Radial artery insertion site. TR band placed. Hemostasis obtained. Post Procedure: Pulses reassessed and unchanged. PERRLA. Strong, equal hand wire frame maker bilaterally. No VTE prophylaxis required. Medication's Wasted: Lidocaine 1% = 2 mL. Medication's Wasted: Nitro = 49.8 mg. Medication's Wasted: Heparin = 1000 units. Total IV fluids: 100 mL. Post-op diagnosis: IFR of Mid LAD normal. Complications: none. Estimated blood loss: 5mL-10mL. Responsiveness - Normal response to verbal stimuli; alert and oriented, PERRLA. Airway - Unaffected, no intervention required; spontaneous ventilation. Circulation: W/N/L, pulses unchanged. Nausea/Vomiting: No. Procedure completed. Patient transferred by wheelchair to ICU. Vital chart was stopped. Access Site Site: Right Radial artery Sheath Size: 6 Fr Hemostasis Method: TR Band Hemostasis Success: Successful Procedure Medications Start: 7:29 AM Stop: 7:29 AM Medication: Versed Amount: 1 mg Route: I.V. Start: 7:29 AM Stop: 7:29 AM Medication: Fentanyl Amount: 50 mcg Route: I.V. Start: 7:34 AM Stop: 7:34 AM Medication: Versed Amount: 1 mg Route: I.V. Start: 7:40 AM Stop: 7:40 AM Medication: Heparin Amount: 5000 units Route: I.V. Start: 7:45 AM Stop: 7:45 AM Medication: Fentanyl Amount: 50 mcg Route: I.V. Start: 7:50 AM Stop: 7:50 AM Medication: Versed Amount: 1 mg Route: I.V. Start: 8:10 AM Stop: 8:10 AM Medication: Versed Amount: 1 mg Route: I.V. Start: 8:30 AM Stop: 8:30 AM Medication: Versed Amount: 1 mg Route: I.V. I, the attending physician, have reviewed and verified all procedure medications. Yes, all medications given per verbal order History/Risk Factors Hypertension: Yes Dyslipidemia: Yes Peripheral Arterial Disease (PAD): No Myocardial Infarction (AR): Yes Obesity: Yes Renal Disease: No Tobacco Use: Current/Recent(w/in 1 year) Prior Interventions PCI: Yes CABG: No Valve Surgery: No Date of PCI: 08/19/2018 Report Signatures Diagnostic Workflow Finalized by Adrienne Rosales MD on 05/02/2022 10:12 AM Interventional Workflow Finalized by Dr. Santos Navarrete MD on 05/02/2022 09:24 AM
--- NOTE | 2022-05-02 07:23 | PC.NURSE ---
patient in cath lab radiology technician at this time
--- NOTE | 2022-05-02 07:24 | W.PM.OPSUD ---
Surgery/Procedure H&P Update DATE OF PROCEDURE: May 02, 2022 DATE H&P PERFORMED: 05/01/22 H&P UPDATE INFORMATION: I have reviewed H&P completed within last 30 days, I have examined patient prior to procedure, No changes to prior documentation and Changes to prior documentation as noted here PREOP DIAGNOSIS: Chest pain concern for unstable angina PRIMARY INDICATION FOR PROCEDURE: Chest pain concern for unstable angina PLANNED PROCEDURE: Operation Date: 05/02/22 08:30 Proposed Procedures p Cardiac Catheterization(Left) - Adrienne Rosales MD PATIENT REASSESSED PRIOR TO SEDATION, WITH NO CHANGE NOTED: Yes PHYSICAL EXAM: alert, oriented x 3, clear to auscultation bilaterally and regular rate & rhythm AIRWAY EVAL/ANESTHESIA PLAN: normal airway, ASA III, Monitored Anesthesia, Local Anesthesia, Risks, benefits & alternatives of sedation and/or procedure discussed and Patient agrees to continue as planned
--- NOTE | 2022-05-02 08:55 | PC.NURSE ---
Back from laborer aquatic life, R wrist TR band intact. Dr. Restrepo at bedside no N.O.
[2022-05-02] MEDS: atorvastatin 40 mg Tablet 20 MG PO (09:01)
[2022-05-02] MEDS: montelukast sodium 10 mg Tablet PO (09:01)
[2022-05-02] MEDS: lisinopril 10 mg Tablet PO (09:01)
[2022-05-02] MEDS: ticagrelor 90 mg Tablet PO (09:02)
[2022-05-02] MEDS: carvedilol 12.5 mg Tablet PO (09:02)
[2022-05-02] MEDS: hydroCHLOROthiazide 25 mg Tablet 12.5 MG PO (09:03)
[2022-05-02] MEDS: aspirin 81 mg EC Tablet PO (09:04)
[2022-05-02] MEDS: levothyroxine 100 mcg Tablet PO (09:05)
[2022-05-02] MEDS: amlodipine 5 mg Tablet PO (09:05)
[2022-05-02] MEDS: famotidine 20 mg Tablet PO (09:06)
[2022-05-02] MEDS: sodium chloride 0.9% 1,000 ML 100 ML IV (09:09)
--- NOTE | 2022-05-02 09:59 | P.PN_ITS ---
Subjective Subjective: s/p [facility] this morning Medications: Reviewed: Yes Vitals/I&O/Wt Last Vital Signs Temp 98.3 F 05/01/22 20:00 Pulse 56 L 05/02/22 09:00 Resp 18 05/02/22 09:00 BP 153/99 05/02/22 09:00 Pulse Ox 94 05/02/22 09:00 O2 Del Method 05/01/22 18:33 05/01/22 05/02/22 05/02/22 22:59 06:59 14:59 Intake Total 50 / 50 Output Total 350 / 350 Balance 50 / 50 -350 / -300 Weight last 48 hrs Weight 232 lb Physical Exam Narrative: GENERAL: Averagely built and averagely nourished in no acute distress HEENT: Extraocular movement intact. No pallor or icterus. NECK: central trachea, CARDIOVASCULAR SYSTEM: S1-S2 regular. No murmur rubs or gallops. RESPIRATORY SYSTEM: Chest clear to auscultation. No wheezes rhonchi or rubs heard. No use of accessory muscles. ABDOMEN: Soft, nontender and nondistended. Normal bowel sounds present. No hepatosplenomegaly appreciated. EXTREMITIES: No cyanosis or clubbing. No edema. No signs of chronic venous insufficiency. SYSTEM ADMIN: Patient is alert oriented ?3. No focal neurological deficits. SKIN: Normal turgor and temperature. PSYCH: Normal insight and judgment. Data : 05/02/22 02:45 05/02/22 02:45 A&P Assessment and plan (1) Chest pain: Concern for unstable angina H/O CAD with 3 stents, last one in 2018 -No residual lesions on the last [facility]. -[facility] with moderate mid LAD 50-60% stenosis not significant by iFR. -continue medical management -May be discharged later today -F/U with [facility] in 1 week for site check, medication titration (Possibly consider stopping lisinopril-HCTZ and increasing amlodipine dose if still symptomatic) -F/U with as scheduled. Status: Acute (2) Coronary artery disease: Status: Acute (3) HTN (hypertension): Status: Acute (4) Hyperlipidemia: Status: Acute (5) COPD (chronic obstructive pulmonary disease): Status: Acute (6) Diabetes mellitus: Status: Acute Plan Chronic active smoker Mild hypokalemia Thank you for allowing me to participate in patient's care. Please feel free to call with questions or concerns. Attestations Medical Necessity Statement*: Stable to be discahrged later today. Coding Level of Care Code Acute Production Control Planner for Perla Hanson Diagnoses Chest pain R07.9 Coronary artery disease I25.10 HTN (hypertension) I10 Hyperlipidemia E78.5 COPD (chronic obstructive pulmonary disease) J44.9 Diabetes mellitus E11.9
[2022-05-02 10:58] LABS: Estmated Average Glucose 126
[2022-05-02 11:08] LABS: Free T4 Free Thyroxine 0.92 ng/dL (0.82-1.77); T3 Free 2.7 PG/ML (2.0-4.4)
--- NOTE | 2022-05-02 11:11 | PC.NURSE ---
Dr. Rosales at bedside, said okay to dc once TR band off, notified
--- NOTE | 2022-05-02 11:55 | P.DS_ITS ---
Discharge Providers Date of Admission: 05/01/22 11:39 Date of Discharge: May 02, 2022 Attending Provider at Admission: Justin Mcgowan MD Attending Provider at Discharge: Miguel Angel Long Primary Care Provider: Fátima Gastelum MD Diagnoses at Discharge Discharge Diagnosis (1) Chest pain: Status: Acute (2) Coronary artery disease: Status: Acute (3) HTN (hypertension): Status: Acute (4) Hyperlipidemia: Status: Acute (5) COPD (chronic obstructive pulmonary disease): Status: Acute (6) Diabetes mellitus: Status: Acute Reason for Visit Reason for Visit: chest pain Hospital Course Hospital Course Pleasant 61-year-old man with history of coronary artery disease, prior stenting of RCA in July 2018 and prior to that 2 CANDELARIA to LAD and diagonal in May 2017 presented due to recurrent episodes of pressure-like feeling in his chest with some dizziness, sometimes at rest sometimes waking him from sleep, radiating to his jaw with improvement and resolution with nitroglycerin ointment in ER. Troponin with mild elevation and mild downtrend 40-32-25.9. EKG without obvious signs of ischemia. Low risk group for PE. Chest x-ray unremarkable. Was additionally assessed by echocardiogram which showed normal ejection fraction, normal diastolic function. No R WMA. With his cardiac history, concern for unstable angina was additionally assessed by coronary angiogram this morning which showed moderate mid LAD 50-60% stenosis nonsignificant by IFR. Recommendation for continuation of medical management, follow-up with cardiology clinic. Will benefit from stopping smoking. Please assist him with his difficult task. He is asked to increase atorvastatin dose to 40 mg. Continue to optimize cardiovascular risk factors. Due to mild wheezing on exam, with COPD, denies any productive cough, asked to increase prednisone to 20 mg daily for the next 5 days for mild COPD exacerbation. Please reassess. He is asked to notify in case of worsening with purulent sputum production. TSH noted with elevation to 9.51, but with normal free T4 and free T3. Please reassess thyroid function in 2-3 weeks. Physical Exam Const: COMMON NORMALS: patient oriented x3 and alert GENERAL APPEARANCE: cooperative ORIENTATION/CONSCIOUSNESS: Yes awake HENMT: COMMON NORMALS: oropharynx normal Neck/C-Spine: COMMON NORMALS: no JVD Resp: COMMON NORMALS: normal respiratory effort AUSCULTATION: wheezes (mild BL) Cardio: COMMON NORMALS: no JVD, regular rhythm, S1 normal heart sound present, S2 normal heart sound present and No murmurs present (Cardio) RHYTHM: regular rhythm HEART SOUNDS: S1 normal heart sound present and S2 normal heart sound present GI: COMMON NORMALS: Normal to inspection, nondistended, normoactive bowel soun ds present, Soft to palpation and non-tender PALPATION: Yes Soft to palpation Extremity: COMMON NORMALS: no joint enlargement and no pedal edema Neuro: COMMON NORMALS: patient oriented x3 and moves all extremities SENSORIUM/ORIENTATION: Yes alert Skin: COMMON NORMALS: no rashes or lesions noted GENERAL SKIN EXAM: no rashes or lesions noted Discharge Data Studies Completed and Pending Completed Studies During Hospitalization Category Date Time Status SOFTWARE QUALITY ASSURANCE SPECIALIST request for service Routine Exams 05/02/22 06:45 Completed XR chest 1V portable [id number] Stat Exams 05/01/22 07:14 Completed CV. echo complete* [id number] Routine Ultrasound 05/01/22 12:26 Completed Radiology Impressions Chest X-Ray 05/01/22 07:14 IMPRESSION: Unremarkable chest radiograph. Laboratory Results WBC 8.4 10^3/uL (4.0-10.0) 05/02/22 02:45 RBC 4.09 10^6/uL (4.1-5.3) L 05/02/22 02:45 Hgb 12.7 g/dL (11.7-16.6) 05/02/22 02:45 Hct 37.3 % (42.0-52.0) L 05/02/22 02:45 MCV 91.2 fl (80-94) 05/02/22 02:45 MCH 31.1 pg (28.0-34.0) 05/02/22 02:45 MCHC 34.0 g/dL (30.0-36.0) 05/02/22 02:45 RDW 12.7 % (12.1-15.1) 05/02/22 02:45 Plt Count 203 10^3/cmm (130-400) 05/02/22 02:45 MPV 10.5 fL (7.4-10.4) H 05/02/22 02:45 Neut % (Auto) 58.8 % 05/02/22 02:45 Lymph % (Auto) 25.0 % 05/02/22 02:45 [place] % (Auto) 8.8 % 05/02/22 02:45 Eos % (Auto) 6.3 % 05/02/22 02:45 Baso % (Auto) 0.9 % 05/02/22 02:45 Neut # (Auto) 4.96 10^3/uL (1.8-7.7) 05/02/22 02:45 Lymph # (Auto) 2.1 10^3/uL (0.8-4.8) 05/02/22 02:45 [place] # (Auto) 0.7 10^3/uL (0.2-0.9) 05/02/22 02:45 Eos # (Auto) 0.5 10^3/uL (0.0-0.8) 05/02/22 02:45 Baso # (Auto) 0.1 10^3/uL (0.0-0.1) 05/02/22 02:45 Nucleated RBC % (auto) 0 % 05/02/22 02:45 Nucleated RBCs # 0.0 /100WBC 05/02/22 02:45 Sodium 143 mmol/L (136-145) 05/02/22 02:45 Potassium 3.9 mmol/L (3.5-5.1) 05/02/22 02:45 Chloride 110 mmol/L (98-107) H 05/02/22 02:45 Carbon Dioxide 22 mmol/L (22-29) 05/02/22 02:45 Anion Gap 14.9 (5-19) 05/02/22 02:45 BUN 12 mg/dL (6-20) 05/02/22 02:45 Creatinine 0.7 mg/dL (0.7-1.2) 05/02/22 02:45 GFR Calculation 115.4 mL/min (90-130) 05/02/22 02:45 Glucose 89 mg/dL (65-115) 05/02/22 02:45 Estimat Average Glucose 126 05/02/22 02:45 Hemoglobin A1c 6.0 % (4.0-6.0) 05/02/22 02:45 Calculated Osmolality 295 mOsm/kg (285-295) 05/02/22 02:45 Calcium 8.2 mg/dL (8.5-10.5) L 05/02/22 02:45 Total Bilirubin 0.5 mg/dL (0.15-1.2) 05/02/22 02:45 AST 17 U/L (0-40) 05/02/22 02:45 ALT 28 U/L (0-41) 05/02/22 02:45 Alkaline Phosphatase 96 U/L (40-130) 05/02/22 02:45 Troponin T Baseline 40 ng/L (0-15) H 05/01/22 07:35 Troponin T 120 Minute 32.06 ng/L (0-15) H 05/01/22 09:35 Delta Troponin T -7.94 ABS# (0-10) L 05/01/22 09:35 Troponin T Hi Sens 6Hr 25.91 ng/L (0-15) H 05/01/22 01:50 Troponin T Hi Sens 6Hr Delta -14.09 ng/L (0-12) L 05/01/22 01:50 Total Protein 6.3 g/dL (6.6-8.7) L 05/02/22 02:45 Albumin 3.5 g/dL (3.5-5.2) 05/02/22 02:45 Globulin 2.8 g/dL (1.3-4.6) 05/02/22 02:45 Triglycerides 185 mg/dL (0-150) H 05/02/22 02:45 Cholesterol 133 mg/dL (0-200) 05/02/22 02:45 LDL Cholesterol, Calc 68 mg/dL (50-129) 05/02/22 02:45 HDL Cholesterol 28 mg/dL (60-100) L 05/02/22 02:45 LDL/HDL Ratio 2.43 RATIO (0.00-3.22) 05/02/22 02:45 Cholesterol/HDL Ratio 4.75 mg/dL (1.0-5.00) 05/02/22 02:45 TSH 9.51 uIU/mL (0.27-4.20) H 05/01/22 07:35 Free T4 0.92 ng/dL (0.82-1.77) 05/02/22 02:45 Free T3 2.7 PG/ML (2.0-4.4) 05/02/22 02:45 Vitals Last Vital Signs Temp 98.3 F 05/01/22 20:00 Pulse 56 L 05/02/22 09:00 Resp 18 05/02/22 09:00 BP 153/99 05/02/22 09:00 Pulse Ox 94 05/02/22 09:00 O2 Del Method 05/01/22 18:33 Discharge Plan Discharge Patient Disposition: Home Condition: Stable Prescriptions: Continued albuterol sulfate 90 mcg/actuation HFA aerosol inhaler 2 puff inhalation Q6H PRN (Reason: Shortness Of Breath Or Wheezing) nitroglycerin [Nitrostat] 0.4 mg tablet, sublingual 0.4 mg SUBLINGUAL Q5M PRN (Reason: Chest Pain) levothyroxine 100 mcg capsule 100 mcg PO DAILY aspirin [Adult Low Dose Aspirin] 81 mg tablet,delayed release (DR/EC) 81 mg PO DAILY metformin 500 mg tablet 500 mg PO DAILY amlodipine 5 mg tablet 5 mg PO DAILY Qty: 30 3RF lisinopril-hydrochlorothiazide 20-25 mg tablet 0.5 tab PO DAILY carvedilol 12.5 mg tablet 12.5 mg PO BID 90 Days Qty: 180 3RF Brilinta 90 mg tablet 90 mg PO BID Qty: 60 0RF Rx Instructions: Must make a follow-up for further refills montelukast 10 mg tablet 10 mg PO DAILY Trelegy Ellipta 100-62.5-25 mcg blister with device 1 inh INHALATION DAILY prednisolone 5 mg Tablet 10 mg PO DAILY PRN (Reason: Shortness Of Breath) Changed atorvastatin 40 mg tablet 40 mg PO DAILY Qty: 90 0RF Discharge Orders: Discharge Order (Routine); Ordered 05/02/22 Ordered By: Miguel Angel Long Referrals: Fátima Gastelum MD [Primary Care Provider] - 4-7 days Kaykay Garcia FNP [Nurse Practitioner] - 1 week Discharge Diet: As Directed Discharge Activity: Increase activity as tolerated Patient Instructions: How to Stop Smoking (GEN), Cigarette Smoking and Your He alth (GEN), Post Angiogram Home Care Instructions Activity Restrictions/Additional Instructions: Avoid lifting more than 2 pounds for 3 days. In case you notice any pulsatile mass in your wrist, bleeding, loss of sensation or weakness in your hand, not resolving chest pain or pressure or any other concerning symptoms seek medical attention. Please stop smoking. Further smoking will lead to progression of coronary disease, further risk of heart attack, stroke, in addition to other risks including worsening of COPD, other lung disease, as well as risk of multiple types of cancer. Increase cholesterol medication atorvastatin to 40 mg daily if possible. Continue inhaler at home for COPD. Please increase prednisone dose to 20 mg daily for the next 5 days. Discussed with your primary doctor in case you start having cough productive with phlegm that has purulent appearance. Discharge Attestations Time Spent in Discharge Care*: greater than 30 min Quality Metrics Clinical Quality Measures [ No reported AMI, CVA or VTE this stay] Coding Level of Care Code Acute [facility] note Diagnoses Chest pain R07.9 Coronary artery disease I25.10 HTN (hypertension) I10 Hyperlipidemia E78.5 COPD (chronic obstructive pulmonary disease) J44.9 Diabetes mellitus E11.9
--- NOTE | 2022-05-02 12:35 | PC.NURSE ---
All d/c instructions educated to patient, patient signed d/c form. patient out of unit at this time, being picked up by
== END 2022-05-02 12:37 | disposition home or self-care (01) ==
LOC: ER 11:19 → ICU 18:00
PROVIDERS: Internal Medicine Cardiovascular Disease; Admitting Provider Internal Medicine; Emergency Provider Family Medicine; PCP Internal Medicine; Visit Provider Internal Medicine
DX: R07.89 Other chest pain (principal); J44.9 Chronic obstructive pulmonary disease, unspecified; E87.6 Hypokalemia; I25.10 Atherosclerotic heart disease of native coronary artery without angina pectoris; I25.2 Old myocardial infarction; I10 Essential (primary) hypertension; E78.5 Hyperlipidemia, unspecified; Z79.82 Long term (current) use of aspirin; Z79.84 Long term (current) use of oral hypoglycemic drugs; Z95.5 Presence of coronary angioplasty implant and graft
CPT/HCPCS: 36415; 71045; 80053; 80061; 83036; 84439; 84443; 84481; 84484; 85025; 93005; 93306; 93454; 93571; 94640; 96360; 96361; 96372; 99152; 99153; 99285; C1769; C1887; C1894; G0378; J1644; J1650; J2250; J3010; J3490; J7030; J7626; Q9967

== ENCOUNTER → 2022-05-15 11:09 | Outpatient (BNVA) | payer OTHER, SELFPAY | PROVIDERS: PCP Internal Medicine; Visit Provider Nurse Practitioner Family | DX: I25.10 Atherosclerotic heart disease of native coronary artery without angina pectoris (principal); I10 Essential (primary) hypertension | CPT/HCPCS: 80048 ==

== ENCOUNTER 2022-06-26 14:04 | Outpatient (CLI) | payer OTHER, SELFPAY ==
--- NOTE | 2022-06-26 14:30 | USCV_ITS ---
Polo Britt Age: 61 Gender: M : 1960 Exam Date: 06/26/2022 14:16 Ordering Phys: Adrienne Rosales MD ([email or web address]) Technologist: Lida Willett [place] [facility] [place]: CP, history CAD BP: 140 / 80 HR: 64 Rhythm: Sinus Technical Quality: Good MEASUREMENTS (Male / Female) Normal Values 2D ECHO LV Diastolic Diameter PLAX 4.9 cm 4.2 - 5.9 / 3.9 - 5.3 cm LV Systolic Diameter PLAX 2.8 cm IVS Diastolic Thickness 0.9 cm 0.6 - 1.0 / 0.6 - 0.9 cm IVS Systolic Thickness 1.5 cm LVPW Diastolic Thickness 1.0 cm 0.6 - 1.0 / 0.6 - 0.9 cm LVPW Systolic Thickness 2.2 cm LVOT Diameter 2.1 cm LV Ejection Fraction 2D Teich 74.9 % LV Ejection Fraction MOD 2C 56.0 % LV Ejection Fraction 2C AL 56.4 % LA Diameter 3.2 cm LA Width 3.6 cm LA Height 4.9 cm RA Width 3.4 cm RA Height 4.6 cm Aorta at Sinotubular Diameter 3.0 cm IVC Diameter 2.0 cm M-MODE MV E Point Septal Separation 0.8 cm DOPPLER AV Peak Velocity 147.0 cm/s LVOT Peak Velocity 96.0 cm/s AV Area Cont Eq vti 2.0 cm squared AV Area Cont Eq pk 2.3 cm squared MV Peak Velocity 87.0 cm/s MV Area PHT 3.0 cm squared Mitral E to A Ratio 0.8 MV E' Velocity 36.0 cm/s Mitral E to MV E' Ratio 8.2 Mitral E to LV E' Lateral Ratio 6.4 Mitral E to LV E' Septal Ratio 11.3 TR Peak Velocity 142.7 cm/s TR Peak Gradient 8.1 mmHg Right Atrial Pressure 3.0 mmHg Pulmonary Artery Systolic Pressu 11.1 mmHg PV Peak Velocity 133.0 cm/s RV Acceleration Time 0.1 s RV Ejection Time 0.4 s RV AcT/ET 0.4 FINDINGS Left Ventricle Normal left ventricular size, systolic function and mildly increased wall thickness, with no regional wall motion abnormalities. Left ventricular ejection fraction is estimated at 60 %. Normal diastolic function. Right Ventricle Normal right ventricular size and systolic function. Normal right ventricular systolic pressure. Right Atrium Normal right atrial size. Left Atrium Normal left atrial size. Mitral Valve Structurally normal mitral valve. No mitral valve stenosis. Trace mitral valve regurgitation. Aortic Valve Structurally normal trileaflet aortic valve. No aortic valve stenosis. No aortic valve regurgitation. Tricuspid Valve Structurally normal tricuspid valve. Trace tricuspid valve regurgitation. Pulmonic Valve Pulmonic valve not well visualized. No pulmonary valve stenosis. No significant pulmonary valve regurgitation. Pericardium No pericardial effusion. Aorta Normal size aortic root and proximal ascending aorta. IVC Normal IVC dimension with >50% respiratory change of the inferior vena cava. CONCLUSIONS 1. Normal left ventricular size, systolic function and wall thickness, with no regional wall motion abnormalities. Left ventricular ejection fraction is estimated at 60 %. Normal diastolic function. 2. Normal right ventricular size and systolic function. 3. Trace mitral valve regurgitation. 4. No change when compared to study dated 05/01/2022. Adrienne Rosales MD (Electronically Signed) Final Date: 28 June 2022 15:19 S
== END 2022-06-26 14:05 | disposition home or self-care (01) ==
LOC: RAD 14:04
PROVIDERS: PCP Internal Medicine; Visit Provider Internal Medicine Cardiovascular Disease
DX: R06.02 Shortness of breath (principal); I25.10 Atherosclerotic heart disease of native coronary artery without angina pectoris
CPT/HCPCS: 93306

== ENCOUNTER 2022-08-12 15:22 | Outpatient (CLI) | payer OTHER, SELFPAY ==
--- NOTE | 2022-08-12 | XRR_ITS ---
PROCEDURE INFORMATION: Exam: XR Bilateral Hips Exam date and time: 08/12/2022 3:49 PM Age: 61 years old Clinical indication: Hip pain; Bilateral TECHNIQUE: Imaging protocol: Radiologic exam of the bilateral hips. Views: 2 views of hips with pelvis when performed. COMPARISON: CT abdomen wo con [id number] 03/19/2020 8:48 AM FINDINGS: Bones/joints: Mild osteoarthritis of the hip. Soft tissues: Unremarkable. XR/XR hip BI 3-4V wo/w pel [id number] IMPRESSION: Mild osteoarthritis of the hip.
== END 2022-08-12 15:23 | disposition home or self-care (01) ==
PROVIDERS: PCP Internal Medicine; Visit Provider Internal Medicine
DX: M25.551 Pain in right hip (principal)
CPT/HCPCS: 73522

== ENCOUNTER 2023-02-06 20:40 | Emergency (ER) | payer SELFPAY ==
[2023-02-06 20:49] VITALS: BP 133/82; PULSE 86; RESP 15; TEMP 36.8; O2SAT 95
--- NOTE | 2023-02-06 20:57 | W.ED.WOUNDLC ---
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 lacerated his left hand on a metal piece he does have a 2 cm laceration to the dorsum of his hand he denies any pain currently is full range of motion of his fingers has some light bleeding he is on Brilinta Associated symptoms: Denies chills, fever(s), nausea or vomiting Review of Systems Const: Denies: fever(s), chills, body aches or change in appetite Eyes: Denies: blurry vision or eye discomfort ENMT: Denies: throat pain or dental pain Card: Denies: chest pain Resp: Denies: dyspnea GI: Denies: abdominal pain, nausea, vomiting or diarrhea Musc: Denies: neck pain or back pain Skin/Breast: Denies: rash PFSH ED PFSH: Medical History BPH (benign prostatic hyperplasia) COPD (chronic obstructive pulmonary disease) Coronary artery disease Diabetes mellitus History of ST elevation myocardial infarction (STEMI) HTN (hypertension) Hyperlipidemia Hypothyroidism Tobacco dependency Surgical History History of coronary angioplasty with insertion of stent (~2016) S/P appendectomy S/P cardiac catheterization [facility] Family History Other Cancer Diabetes Heart disease Hypertension Denies family history of Anesthesia complication Bleeding disorder Social History Smoking and tobacco status: current some day smoker Second hand smoke exposure: No Alcohol intake: current Alcohol intake frequency: holidays/special occasions only Alcohol type: beer Substance/Drug Use: never Adopted: No Caregiver/support person: Yes Lives independently: Yes Household members: spouse Housing: House Marital status: service: No Current occupational status: retired Current occupational exposures/hazards: No Pets and animals: No Sexually active: Yes Do you think of yourself as: Straight/Heterosexual Current gender identity: Male Elisabeth/Scientologist: Pentec[employer]ism Physical Exam Const: COMMON NORMALS: no acute distress and patient oriented x3 HENMT: COMMON NORMALS: normocephalic and atraumatic HEAD & SCALP: normocephalic and atraumatic Eye: COMMON NORMALS: conjunctivae normal CONJUNCTIVA: Yes conjunctivae normal Neck/C-Spine: COMMON NORMALS: supple Chest: COMMONS NORMALS: normal inspection of the chest Resp: COMMON NORMALS: normal respiratory effort Cardio: COMMON NORMALS: regular rate RATE: regular rate GI: INSPECTION: Yes normal to inspection Extremity: NARRATIVE EXTREMITY EXAM: 2 cm laceration to the dorsum of the left hand superficial nature Neuro: COMMON NORMALS: patient oriented x3 Psych: COMMON NORMALS: mental status grossly normal Procedures Laceration Laceration 1: Site: upper extremity Side (If applicable): left Size (cm): 2 Description: linear Pre-repair: irrigated extensively Size (cm): other (dermabond) Course Vital Signs: Vital signs: Vital Signs Temperature 98.2 F 02/06/23 20:49 Pulse Rate 86 02/06/23 20:49 Respiratory Rate 15 02/06/23 20:49 Blood Pressure 133/82 02/06/23 20:49 Pulse Oximetry 95 02/06/23 20:49 Oxygen Delivery Me thod Room Air 02/06/23 20:49 MDM - Wound/Laceration Medical Decision Making Patient presents with a laceration to his hand bleeding is controlled did irrigate and repair the laceration with Dermabond he had his tetanus updated he is stable for discharge. Discharge Plan Discharge Patient Disposition: Home Clinical Impression: Laceration Condition: Stable Prescriptions: No Action albuterol sulfate 90 mcg/actuation HFA aerosol inhaler 2 puff inhalation Q6H PRN (Reason: Shortness Of Breath Or Wheezing) nitroglycerin [Nitrostat] 0.4 mg tablet, sublingual 0.4 mg SUBLINGUAL Q5M PRN (Reason: Chest Pain) levothyroxine 100 mcg capsule 100 mcg PO DAILY aspirin [Adult Low Dose Aspirin] 81 mg tablet,delayed release (DR/EC) 81 mg PO DAILY metformin 500 mg tablet 500 mg PO DAILY lisinopril-hydrochlorothiazide 20-25 mg tablet 0.5 tab PO DAILY carvedilol 12.5 mg tablet 12.5 mg PO BID 90 Days Qty: 180 3RF Brilinta 90 mg tablet 90 mg PO BID Qty: 60 0RF Rx Instructions: Must make a follow-up for further refills atorvastatin 40 mg tablet 40 mg PO DAILY Qty: 90 3RF amlodipine 5 mg tablet 5 mg PO DAILY Qty: 90 3RF montelukast 10 mg tablet 10 mg PO DAILY Trelegy Ellipta 100-62.5-25 mcg blister with device 1 inh INHALATION DAILY prednisolone 5 mg Tablet 10 mg PO DAILY PRN (Reason: Shortness Of Breath) Discharge Orders: Discharge ED (Routine); Ordered 02/06/23 Ordered By: Horacio Gray Referrals: Fátima Gastelum MD [Primary Care Provider] - 1-3 days Discharge Diet: Advance as tolerated Discharge Activity: Resume usual activity Patient Instructions: Laceration (ED), Skin Adhesive Care (ED) Coding Level of Care Code ED Assistant Office Manager for Perla Hanson
[2023-02-06] MEDS: tetanus-dipt-pertussis 0.5 mL SDV IM (21:07)
== END 2023-02-06 21:12 | disposition home or self-care (01) ==
PROVIDERS: Emergency Provider Emergency Medicine; PCP Internal Medicine
DX: S61.412A Laceration without foreign body of left hand, initial encounter (principal); Z79.82 Long term (current) use of aspirin; Z79.84 Long term (current) use of oral hypoglycemic drugs; F17.210 Nicotine dependence, cigarettes, uncomplicated; J44.9 Chronic obstructive pulmonary disease, unspecified; I25.10 Atherosclerotic heart disease of native coronary artery without angina pectoris; E11.9 Type 2 diabetes mellitus without complications; I25.2 Old myocardial infarction; I10 Essential (primary) hypertension; E78.5 Hyperlipidemia, unspecified; Z95.5 Presence of coronary angioplasty implant and graft; Z23 Encounter for immunization; W26.8XXA Contact with other sharp object(s), not elsewhere classified, initial encounter
CPT/HCPCS: 12001; 90471; 90715; 99282

== ENCOUNTER → 2025-01-18 16:26 | Outpatient (BNVA) | payer OTHER, SELFPAY | PROVIDERS: PCP Internal Medicine; Visit Provider Internal Medicine Cardiovascular Disease | DX: R07.9 Chest pain, unspecified (principal); R00.1 Bradycardia, unspecified; R93.1 Abnormal findings on diagnostic imaging of heart and coronary circulation | CPT/HCPCS: 93005 ==

== ENCOUNTER 2025-01-18 17:28 | Inpatient (IN) | payer SELFPAY ==
[2025-01-18] VITALS (7 sets, daily range): BP systolic 124–157; BP diastolic 65–94; PULSE 61–89; RESP 16–18; TEMP 36.4–36.7; O2SAT 92–97; BMI 29.5
--- NOTE | 2025-01-18 17:32 | ECG_ITS ---
[employer] Test Date: 2025-01-18 Pat Name: Polo Britt Department: Room: Gender: Male [employer]or [employer]: : 1960 Requested By: Colette Lugo Order Number: [id number] Carlos Fontana MD: Delores Thomas M.D. Measurements Intervals [place] Rate: 86 P: 75 ME: 164 QRS: 53 QRSD: 110 T: 67 QT: 371 QTc: 445 Interpretive Statements SINUS RHYTHM INCOMPLETE RIGHT BUNDLE BRANCH BLOCK [90+ ms QRS DURATION, TERMINAL R IN V1/V2, 40+ ms S IN I/aVL/V4/V5/V6] Compared to ECG 01/18/2025 16:29:31 No significant changes Electronically Signed On 01-18-2025 18:00:24 CDT by Delores Thomas M.D. [email or web address]
--- NOTE | 2025-01-18 18:15 | XRR_ITS ---
PROCEDURE INFORMATION: Exam: XR Chest Exam date and time: 01/18/2025 6:37 PM Age: 64 years old Clinical indication: Pain; Chest pressure; Prior surgery; Surgery date: 6+ months; Surgery type: Stents; Additional info: Chest pain TECHNIQUE: Imaging protocol: Radiologic exam of the chest. Views: 1 view. COMPARISON: CR XR chest 1V portable [id number] 05/01/2022 7:24 AM FINDINGS: Lungs: Unremarkable. No consolidation. Pleural spaces: Unremarkable. No pleural effusion. No pneumothorax. Heart/Mediastinum: Unremarkable. No cardiomegaly. Bones/joints: Unremarkable. XR/XR chest 1V portable [id number] IMPRESSION: No acute findings.
[2025-01-18] MEDS: aspirin 81 mg Chew Tablet 324 MG PO (18:43)
--- NOTE | 2025-01-18 18:51 | W.ED.CHESTPA ---
HPI - Chest Pain General: Chief Complaint: Chest Pain Stated Complaint: cp Time Seen by Provider: 01/18/25 18:37 History of Present Illness: 64-year-old man with a history of coronary artery disease status post stents on Brilinta, diabetes, hypertension and hyperlipidemia who presents to the emergency room with chest pain. He was sent to the emergency room from cardiology clinic by Dr. Kaur. Planning for heart cath. Pain has been intermittent for several days. Central chest into his back. Pressure. No fevers or chills. No cough. No nausea or vomiting. No abdominal pain. Related Data Home Medications ?Medication ?Instructions ?Recorded ?Confirmed aspirin 81 mg tablet,delayed 81 mg PO DAILY 11/23/19 01/18/25 release (Adult Low Dose Aspirin) levothyroxine 100 mcg capsule 100 mcg PO DAILY 11/23/19 01/18/25 nitroglycerin 0.4 mg sublingual 0.4 mg sublingual Q5M PRN Chest 11/23/19 01/18/25 tablet (Nitrostat) Pain albuterol sulfate 90 mcg/actuation 2 puff inhalation Q6H PRN 09/19/20 01/18/25 aerosol inhaler Shortness Of Breath Or Wheezing lisinopril 20 0.5 tab PO DAILY 04/22/22 01/18/25 mg-hydrochlorothiazide 25 mg tablet metformin 500 mg tablet 500 mg PO DAILY 04/22/22 01/18/25 fluticasone fur. 100 mcg-umeclid 1 inh inhalation DAILY 05/01/22 01/18/25 62.5 mcg-vilant 25 mcg inhalat.powder (Trelegy Ellipta) montelukast 10 mg tablet 10 mg PO DAILY 05/01/22 01/18/25 Previous Rx's ?Medication ?Instructions ?Recorded carvedilol 12.5 mg tablet 12.5 mg PO BID 3 months #180 tabs 02/16/20 ticagrelor 90 mg tablet (Brilinta) 90 mg PO BID #60 tabs 12/19/21 atorvastatin 40 mg tablet 40 mg PO DAILY #90 tabs 05/14/22 amlodipine 5 mg tablet 5 mg PO DAILY #30 tabs 07/18/24 isosorbide mononitrate 30 mg 30 mg PO DAILY #90 tabs 01/18/25 tablet,extended release 24 hr nitroglycerin 0.4 mg sublingual 0.4 mg sublingual Q5M PRN chest 01/18/25 tablet pain #25 tabs Allergies Allergy/AdvReac Type Severity Reaction Status Date / Time No Known Allergies Allergy Verified 01/18/25 15:22 Review of Systems Narrative: Constitutional symptoms: Negative except as documented in HPI. Skin symptoms: Negative except as documented in HPI. Eye symptoms: Negative except as documented in HPI. ENMT symptoms: Negative except as documented in HPI. Respiratory symptoms: Negative except as documented in HPI. Cardiovascular symptoms: Negative except as documented in HPI. Gastrointestinal symptoms: Negative except as documented in HPI. Genitourinary symptoms: Negative except as documented in HPI. Musculoskeletal symptoms: Negative except as documented in HPI. Neurologic symptoms: Negative except as documented in HPI. Psychiatric symptoms: Negative except as documented in HPI. Endocrine symptoms: Negative except as documented in HPI. PFSH ED PFSH: Medical History BPH (benign prostatic hyperplasia) COPD (chronic obstructive pulmonary disease) Coronary artery disease Diabetes mellitus History of ST elevation myocardial infarction (STEMI) HTN (hypertension) Hyperlipidemia Hypothyroidism Tobacco dependency Surgical History History of coronary angioplasty with insertion of stent (~2016) S/P appendectomy S/P cardiac catheterization [facility] Family History Other Cancer Diabetes Heart disease Hypertension Denies family history of Anesthesia complication Bleeding disorder Social History Smoking and tobacco/nicotine status: former use of tobacco/nicotine Second hand smoke exposure: No Alcohol intake: current Alcohol intake frequency: holidays/special occasions only Alcohol type: beer Substance/Drug Use: never Adopted: No Caregiver/support person: Yes Lives independently: Yes Household members: spouse Housing: House Marital status: service: No Current occupational status: retired Current occupational exposures/hazards: No Pets and animals: No Sexually active: Yes Do you think of yourself as: Straight/Heterosexual Current gender identity: Male Elisabeth/Hoahaoism: Islam Physical Exam Narrative: EXAM NARRATIVE: General: Alert, no acute distress. Skin: Warm, dry. Head: Normocephalic, atraumatic. Neck: Supple, trachea midline. Eye: Extraocular movements are intact. Ears, nose, mouth and throat: mucosa moist. Cardiovascular: Regular, Normal peripheral perfusion. Respiratory: Lungs are clear to auscultation, respirations are non-labored, breath sounds are equal, Symmetrical chest wall expansion. Gastrointestinal: Soft, Nontender, Non distended Musculoskeletal: Normal ROM, no deformity. Neurological: Alert and oriented, No focal neurological deficit observed. Psychiatric: Cooperative, appropriate mood & affect. Course Vital Signs: Vital signs: Vital Signs Temperature 98.0 F 01/18/25 17:33 Pulse Rate 69 01/18/25 20:38 Respiratory Rate 16 01/18/25 19:01 Blood Pressure 149/93 01/18/25 20:38 Pulse Oximetry 97 01/18/25 20:38 Oxygen Delivery Me thod Room Air 01/18/25 20:38 MDM - Chest Pain Medical Decision Making Differential diagnosis for patient with chest pain includes but is not limited to and based on the above HPI, review of systems and physical exam: Pneumonia. unstable angina. angina. Acute coronary syndrome / GA. Pulmonary embolism. Costochondritis / musculoskeletal. Pleurisy. Pericarditis. Esophageal spasm. Pancreatis. Cholecystitis. Orders placed to evaluate differential diagnosis based on the above differential, HPI and physical exam EKG: Time 1732. Rate 86. Normal sinus rhythm, No ST-T changes, no ectopy, incomplete right bundle branch block, This was reviewed and interpreted by myself the ER physician at 1736 Chest x-ray: No acute process. No infiltrate. No pneumothorax. This was reviewed and interpreted by myself the emergency room physician. I also reviewed the radiology report. Lab Review: Laboratory results were reviewed and interpreted by myself the emergency room physician. No leukocytosis. No anemia. No renal failure. Initial troponin is slightly elevated at 24. I reviewed the patient's medical record. Consultation: I spoke with Dr. Kaur who is the patient's player development executive who recommends admission to the hospitalist service and he will plan on being consulted tomorrow for a heart cath. Reexamination: Patient remained stable. No increased work of breathing. No altered mental status. No focal motor deficits. Consultation: I spoke with Dr. Velasco who agrees to admission Assessment and plan: Chest pain Coronary artery disease Unstable angina -I discussed the patient with the hospitalist on-call who is admitting the patient. - Discussed findings and plan with patient. Answered any questions. - All laboratory values were reviewed and interpreted personally by myself, the ER physician - All imaging was reviewed and interpreted personally by myself, the ER physician. - Evaluation and treatment of this problem were appropriate in the emergency setting Lab Data 01/18/25 18:34 01/18/25 18:34 Radiology Impressions Chest X-Ray 01/18/25 18:15 IMPRESSION: No acute findings. Laboratory Results WBC 6.90 10^3/uL (3.29-11.43) 01/18/25 18:34 RBC 4.54 10^6/uL (3.85-5.65) 01/18/25 18:34 Hgb 14.10 g/dL (11.27-16.99) 01/18/25 18:34 Hct 41.4 % (37-53) 01/18/25 18:34 MCV 91.2 fl (82-101) 01/18/25 18:34 MCH 31.1 pg (27-33) 01/18/25 18:34 MCHC 34.1 g/dL (30-55) 01/18/25 18:34 RDW 12.9 % (12.1-15.1) 01/18/25 18:34 Plt Count 219 10^3/cmm (157-399) 01/18/25 18:34 MPV 9.6 fL (7.4-10.4) 01/18/25 18:34 Neut % (Auto) 44.5 % 01/18/25 18:34 Lymph % (Auto) 35.5 % 01/18/25 18:34 [place] % (Auto) 10.0 % 01/18/25 18:34 Eos % (Auto) 8.4 % 01/18/25 18:34 Baso % (Auto) 1.2 % 01/18/25 18:34 Neut # (Auto) 3.07 10^3/uL (1.8-7.7) 01/18/25 18:34 Lymph # (Auto) 2.5 10^3/uL (0.8-4.8) 01/18/25 18:34 [place] # (Auto) 0.7 10^3/uL (0.2-0.9) 01/18/25 18:34 Eos # (Auto) 0.6 10^3/uL (0.0-0.8) 01/18/25 18:34 Baso # (Auto) 0.1 10^3/uL (0.0-0.1) 01/18/25 18:34 Nucleated RBC % (auto) 0 % 01/18/25 18:34 Nucleated RBCs # 0.0 /100WBC 01/18/25 18:34 Sodium 140 mmol/L (136-145) 01/18/25 18:34 Potassium 4.1 mmol/L (3.5-5.1) 01/18/25 18:34 Chloride 105 mmol/L (98-107) 01/18/25 18:34 Carbon Dioxide 22 mmol/L (22-29) 01/18/25 18:34 Anion Gap 17.1 (5-19) 01/18/25 18:34 BUN 20 mg/dL (8-23) 01/18/25 18:34 Creatinine 0.8 mg/dL (0.7-1.2) 01/18/25 18:34 GFR Calculation 98.0 mL/min (90-130) 01/18/25 18:34 Glucose 178 mg/dL (65-115) H 01/18/25 18:34 Calculated Osmolality 297 mOsm/kg (285-295) H 01/18/25 18:34 Calcium 8.8 mg/dL (8.5-10.5) 01/18/25 18:34 Total Bilirubin 0.8 mg/dL (0.15-1.2) 01/18/25 18:34 AST 24 U/L (0-40) 01/18/25 18:34 ALT 42 U/L (0-41) H 01/18/25 18:34 Alkaline Phosphatase 115 U/L (40-130) 01/18/25 18:34 Troponin T Baseline 24 ng/L (0-15) H 01/18/25 18:34 NT-Pro-B Natriuret Pep 54 pg/mL (0-125) 01/18/25 18:34 Total Protein 7.4 g/dL (6.6-8.7) 01/18/25 18:34 Albumin 4.2 g/dL (3.5-5.2) 01/18/25 18:34 Globulin 3.2 g/dL (1.3-4.6) 01/18/25 18:34 All radiology interpretation(s) finalized by discharge Discharge Plan Discharge Patient Disposition: Admitted As Inpatient Clinical Impression: Chest pain, Coronary artery disease, Unstable angina Condition: Stable Coding Level of Care Code ED Balancing Machine Set Up Worker for Perla Hanson
[2025-01-18 18:55] LABS: Basophils # 0.1 10^3/uL (0.0-0.1); Basophils % 1.2 %; Eosinophils # 0.6 10^3/uL (0.0-0.8); Eosinophils % 8.4 %; Hematocrit 41.4 % (37-53); Lymphocytes # 2.5 10^3/uL (0.8-4.8); Lymphocytes % 35.5 %; Mean Corpuscular HGB Conc 34.1 g/dL (30-55); Mean Corpuscular Hemoglobin 31.1 pg (27-33); Mean Corpuscular Volume 91.2 fl (82-101); Mean Platelet Volume 9.6 fL (7.4-10.4); Monocytes # 0.7 10^3/uL (0.2-0.9); Neutrophils # 3.07 10^3/uL (1.8-7.7); Neutrophils % 44.5 %; Nucleated Red Blood Cells % 0 %; Platelet Count 219 10^3/cmm (157-399); Red Blood Count 4.54 10^6/uL (3.85-5.65); Red Cell Distribution Width 12.9 % (12.1-15.1)
[2025-01-18 19:13] LABS: Troponin(5th) Baseline 24 ng/L (0-15)
[2025-01-18 19:36] LABS: Alanine Aminotransferase 42 U/L (0-41); Albumin Level 4.2 g/dL (3.5-5.2); Alkaline Phosphatase 115 U/L (40-130); Anion Gap 17.1 (5-19); Aspartate Amino Transferase 24 U/L (0-40); Blood Urea Nitrogen 20 mg/dL (8-23); Calcium 8.8 mg/dL (8.5-10.5); Carbon Dioxide 22 mmol/L (22-29); Chloride 105 mmol/L (98-107); Creatinine Clr Calc Pharmacy 124.2805; Globulin 3.2 g/dL (1.3-4.6); Glucose 178 mg/dL (65-115); NT Pro B Type Natriuretic Pept 54 pg/mL (0-125); Osmolality Calculated 297 mOsm/kg (285-295); Potassium 4.1 mmol/L (3.5-5.1); Sodium 140 mmol/L (136-145); Total Bilirubin 0.8 mg/dL (0.15-1.2); Total Protein 7.4 g/dL (6.6-8.7)
--- NOTE | 2025-01-18 19:58 | ECG_ITS ---
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 Measurements Intervals [place] Rate: 66 P: 73 AK: 182 QRS: 45 QRSD: 118 T: 59 QT: 419 QTc: 440 Interpretive Statements SINUS RHYTHM MODERATE INTRAVENTRICULAR CONDUCTION DELAY [110+ ms QRS DURATION] Compared to ECG 01/18/2025 17:32:35 Intraventricular conduction delay now present Incomplete right bundle-branch block no longer present Electronically Signed On 01-19-2025 16:27:57 CDT by Delores Thomas M.D. [id number] [id number]
[2025-01-18 21:26] LABS: Troponin 5 2HR 23.61 ng/L (0-15)
[2025-01-18 21:27] LABS: Troponin 5 2HR Delta -0.39 ABS# (0-10)
--- NOTE | 2025-01-18 23:40 | ECG_ITS ---
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 Measurements Intervals [place] Rate: 60 P: 69 NC: 195 QRS: 10 QRSD: 113 T: 45 QT: 445 QTc: 447 Interpretive Statements SINUS RHYTHM WITH OCCASIONAL VENTRICULAR PREMATURE COMPLEXES INCOMPLETE RIGHT BUNDLE BRANCH BLOCK [90+ ms QRS DURATION, TERMINAL R IN V1/V2, 40+ ms S IN I/aVL/V4/V5/V6] MODERATE ST DEPRESSION [0.05+ mV ST DEPRESSION] Compared to ECG 01/18/2025 19:58:08 Ventricular premature complex(es) now present Incomplete right bundle-branch block now present ST (T wave) deviation now present Intraventricular conduction delay no longer present Electronically Signed On 01-19-2025 16:33:01 CDT by Delores Thomas M.D. [email or web address] [id number]
--- NOTE | 2025-01-18 23:54 | P.CONIM_ITS ---
Providers/Reason For Consult 2 Consulting Physician/Specialty*: ERNIE Thomas MD/cardiology Reason for Consult*: Patient with unstable anginal symptoms, previous PCI Requesting Physician: Dr. Velasco Attending Physician: Aura Velasco MD Primary Care Provider: Fátima Gastelum MD History of Present Illness History of Present Illness Polo Britt is a 64 year old male with a history of atherosclerotic heart disease and multiple PCI, is admitted to the hospital through the emergency room where he presented with complaints of increasing episodes of chest pain. Cardiology consult is requested for further cardiac evaluation recommendations. This patient has a history of atherosclerotic heart disease and had the first coronary intervention in 2017 in [facility]. In 2019, he had PCI in our hospital by . According to the patient he has been doing okay up until 2 weeks ago when he started having pain in the upper substernal region, radiating across the chest and also to both arms. It is a pressure-like/aching pain, associate with some shortness of breath. The pain was radiating also to both arms with occasional tingling. No other associated symptoms or radiation of pain. The pain was infrequent in the beginning. But lately he has been having this pain almost every day, several times a day. Each of these episodes may last relative from couple of minutes to 20 minutes. Has some amount of dyspnea on exertion. No orthopnea or PND. No fever, chills or cough. Patient has a history of high blood pressure, type 2 diabetes, dyslipidemia and COPD. No history for CVA or peripheral artery disease. No history for kidney disease, liver disease or bleeding disorders. He used to smoke 2 to 3 pack a day for 30 years or so. He quit smoking 2 years ago. No alcohol abuse or any substance abuse. His mother had heart problems. CVA runs in the family. Review of Systems 2 Narrative: CONSTITUTIONAL: No fever or chills. EYES: No blurring of vision or other visual disturbances lately. ENT: No hoarseness of voice, auditory disturbances or sore throat. CARDIOVASCULAR: As mentioned above. RESPIRATORY: No significant cough. GASTROINTESTINAL: No hematemesis or melena. GENITOURINARY: No dysuria or hematuria. INTEGUMENTARY: No skin rashes or history of skin cancer. NEURO: No transient ischemic attacks or amaurosis. PSYCHIATRIC: No history of psychosis or major depression. HEMATOLOGIC: No bleeding disorders or significant anemia. ENDOCRINE: History of type 2 diabetes MUSCULOSKELETAL: No recent joint pain or swelling. ALLERGY/IMMUNOLOGY: As mentioned above. Medications/Allergies Home Medications ?Medication ?Instructions ?Recorded ?Confirmed ?Last Taken ?Type aspirin 81 mg tablet,delayed 81 mg PO DAILY 11/23/19 0 01/18/25 04/30/22 History release (Adult Low Dose Aspirin) levothyroxine 100 mcg capsule 100 mcg PO DAILY 0 01/18/25 04/30/22 History nitroglycerin 0.4 mg sublingual 0.4 mg sublingual Q5M PRN Chest 11/23/19 01/18/25 05/01/22 History tablet (Nitrostat) Pain carvedilol 12.5 mg tablet 12.5 mg PO BID 3 months #180 tabs 02/16/20 01/18/25 04/30/22 Rx albuterol sulfate 90 mcg/actuation 2 puff inhalation Q 6H PRN 09/19/20 01/18/25 Unknown History aerosol inhaler Shortness Of Breath Or [place]ez ing ticagrelor 90 mg tablet (Brilinta) 90 mg PO BID #60 ta bs 12/19/21 01/18/25 04/30/22 Rx lisinopril 20 0.5 tab PO DAILY 04/22/2205/01/22 History mg-hydrochlorothiazide 25 mg tablet metformin 500 mg tablet 500 mg PO DAILY 04/22/2204/30/22 History fluticasone fur. 100 mcg-umeclid 1 inh inhalation SAL Y 05/01/22 01/18/25 04/30/22 History 62.5 mcg-vilant 25 mcg inhalat.powder (Trelegy Ellipta) montelukast 10 mg tablet 10 mg PO DAILY 05/01/2212/2904/30/22 History atorvastatin 40 mg tablet 40 mg PO DAILY #90 tabs 04/3001/18/25 Unknown Rx amlodipine 5 mg tablet 5 mg PO DAILY #30 tabs 07/1801/18/25 Unknown Rx isosorbide mononitrate 30 mg 30 mg PO DAILY #90 tabs 0 01/18/25 01/18/25 Unknown Rx tablet,extended release 24 hr nitroglycerin 0.4 mg sublingual 0.4 mg sublingual Q5M PRN chest 01/18/25 01/18/25 Unknown Rx tablet pain #25 tabs Allergies Allergy/AdvReac Type Severity Reaction Status Date / Time No Known Allergies Allergy Verified 01/18/25 15:22 PFSH Acute 2 PFSH: Medical History Hypothyroidism Diabetes mellitus Tobacco dependency Hyperlipidemia Coronary artery disease BPH (benign prostatic hyperplasia) COPD (chronic obstructive pulmonary disease) History of ST elevation myocardial infarction (STEMI) HTN (hypertension) Surgical History S/P appendectomy S/P cardiac catheterization [facility] History of coronary angioplasty with insertion of stent (~2016) Family History Other Cancer Diabetes Heart disease Hypertension Denies family history of Anesthesia complication Bleeding disorder Social History Smoking and tobacco/nicotine status: former use of tobacco/nicotine Second hand smoke exposure: No Alcohol intake: current Alcohol intake frequency: holidays/special occasions only Alcohol type: beer Substance/Drug Use: never Adopted: No Caregiver/support person: Yes Lives independently: Yes Household members: spouse Housing: House Marital status: service: No Current occupational status: retired Current occupational exposures/hazards: No Pets and animals: No Sexually active: Yes Do you think of yourself as: Straight/Heterosexual Current gender identity: Male Elisabeth/Denominational: Latter Day Vitals/I&O/Wt Last Vital Signs Temp 97.6 F 01/18/25 22:35 Pulse 61 01/18/25 22:35 Resp 18 01/18/25 22:35 BP 157/88 01/18/25 22:35 Pulse Ox 97 01/18/25 22:35 O2 Del Method Room Air 01/18/25 22:35 Weight last 48 hrs Weight 230 lb Weight 234 lb Physical Exam 2 Narrative: GENERAL: The patient is alert and oriented times three. Not in any acute distress. HEENT: No significant pallor, icterus or lymphadenopathy.Oral cavity: There are no mucous membrane lesions. NECK: Trachea appears to be central. No masses noted. No JVD or thyromegaly appreciated. RESPIRATORY: Chest is symmetrical. No intercostals muscle retraction or any accessory muscle activation. There is no chest wall tenderness. Breath sounds are heard bilaterally. No rales or rhonchi heard. No evidence of any consolidation. BREASTS: Deferred. HEART: The heart sounds are normal. No S3 or S4. No significant murmurs. No pericardial rub ABDOMEN: No vessel pulsations or distention. No tenderness. No organomegaly appreciated. Bowel sounds are normally heard. : Deferred. RECTAL: Deferred. LYMPHATIC: No lymphadenopathy noted in the neck. EXTREMITIES: No edema or cyanosis. No clubbing. Hyperpigmented skin. Peripheral pulses are palpable but somewhat weak MUSCULOSKELETAL: No acute joint deformities or swelling SKIN: There are no significant rashes or ecchymosis NEUROPSYCHIATRIC: The patient is alert and oriented x3. Appears to be in a good mood. No tremors or rigidity noted. Data 01/18/25 18:34 01/18/25 18:34 Other Labs: Laboratory Last Values WBC 6.90 10^3/uL (3.29-11.43) 01/18/25 18:34 RBC 4.54 10^6/uL (3.85-5.65) 01/18/25 18:34 Hgb 14.10 g/dL (11.27-16.99) 01/18/25 18:34 Hct 41.4 % (37-53) 01/18/25 18:34 MCV 91.2 fl (82-101) 01/18/25 18:34 MCH 31.1 pg (27-33) 01/18/25 18:34 MCHC 34.1 g/dL (30-55) 01/18/25 18:34 RDW 12.9 % (12.1-15.1) 01/18/25 18:34 Plt Count 219 10^3/cmm (157-399) 01/18/25 18:34 MPV 9.6 fL (7.4-10.4) 01/18/25 18:34 Neut % (Auto) 44.5 % 01/18/25 18:34 Lymph % (Auto) 35.5 % 01/18/25 18:34 [place] % (Auto) 10.0 % 01/18/25 18:34 Eos % (Auto) 8.4 % 01/18/25 18:34 Baso % (Auto) 1.2 % 01/18/25 18:34 Neut # (Auto) 3.07 10^3/uL (1.8-7.7) 01/18/25 18:34 Lymph # (Auto) 2.5 10^3/uL (0.8-4.8) 01/18/25 18:34 [place] # (Auto) 0.7 10^3/uL (0.2-0.9) 01/18/25 18:34 Eos # (Auto) 0.6 10^3/uL (0.0-0.8) 01/18/25 18:34 Baso # (Auto) 0.1 10^3/uL (0.0-0.1) 01/18/25 18:34 Nucleated RBC % (auto) 0 % 01/18/25 18:34 Nucleated RBCs # 0.0 /100WBC 01/18/25 18:34 Sodium 140 mmol/L (136-145) 01/18/25 18:34 Potassium 4.1 mmol/L (3.5-5.1) 01/18/25 18:34 Chloride 105 mmol/L (98-107) 01/18/25 18:34 Carbon Dioxide 22 mmol/L (22-29) 01/18/25 18:34 Anion Gap 17.1 (5-19) 01/18/25 18:34 BUN 20 mg/dL (8-23) 01/18/25 18:34 Creatinine 0.8 mg/dL (0.7-1.2) 01/18/25 18:34 GFR Calculation 98.0 mL/min (90-130) 01/18/25 18:34 Glucose 178 mg/dL (65-115) H 01/18/25 18:34 Calculated Osmolality 297 mOsm/kg (285-295) H 01/18/25 18:34 Calcium 8.8 mg/dL (8.5-10.5) 01/18/25 18:34 Total Bilirubin 0.8 mg/dL (0.15-1.2) 01/18/25 18:34 AST 24 U/L (0-40) 01/18/25 18:34 ALT 42 U/L (0-41) H 01/18/25 18:34 Alkaline Phosphatase 115 U/L (40-130) 01/18/25 18:34 Troponin T Baseline 24 ng/L (0-15) H 01/18/25 18:34 Troponin T 120 Minute 23.61 ng/L (0-15) H 01/18/25 20:52 Delta Troponin T -0.39 ABS# (0-10) L 01/18/25 20:52 NT-Pro-B Natriuret Pep 54 pg/mL (0-125) 01/18/25 18:34 Total Protein 7.4 g/dL (6.6-8.7) 01/18/25 18:34 Albumin 4.2 g/dL (3.5-5.2) 01/18/25 18:34 Globulin 3.2 g/dL (1.3-4.6) 01/18/25 18:34 Other data: The EKG showed normal sinus rhythm with occasional PVCs. Some nonspecific ST changes in the inferior leads A&P Assessment and plan (1) Atherosclerotic heart disease of enterprise coronary artery with unstable angina pectoris: Patient symptoms are suggestive of unstable angina. Apparently had multiple PCI's in the past. Possibility of progression of disease in the other coronary arteries or restenosis of the stented segments are considerations. Hemodynamically seems to be stable. May do an echocardiogram to evaluate LV function and rule out any other pathology. He may be treated with subcu Lovenox, aspirin, Brilinta and other current medications. (2) HTN (hypertension): Patient apparently has not given the evening dose of his medication. May restart all the home medications at this point, except the metformin. (3) Hyperlipidemia: May continue with current medications. (4) Diabetes mellitus: May hold off on the metformin. Blood sugar needs to be closely monitored. (5) COPD (chronic obstructive pulmonary disease): Clinically seems to be stable. Patient has been taking the bronchodilators. This may be continued. Plan Echocardiogram to evaluate LV function and rule out any other pathology. Lovenox 110 mg p.o. now May keep the patient n.p.o. after midnight. Possible cardiac catheterization tomorrow Based on the clinical progress, further recommendations will be made Thank for the opportunity to eval this patient and make these recommendations PDMP PDMP Reviewed: Not Reviewed Consult Attestations 2 Medical Necessity Statement: Patient requires continued hospital stay for close monitoring and further management Coding Level of Care Code 54233 Diagnoses Atherosclerosis of enterprise coronary artery of enterprise heart with unstable angina pectoris I25.110 [place] vs. transplanted heart: enterprise heart Primary hypertension I10 Hypertension type: primary hypertension Mixed hyperlipidemia E78.2 Hyperlipidemia type: mixed hyperlipidemia Type 2 diabetes mellitus without complication, without long-term current use of insulin E11.9 Diabetes mellitus type: type 2 Diabetes mellitus on air host insulin use: without chcf use Diabetes mellitus complication status: without complication Chronic obstructive pulmonary disease, unspecified COPD type J44.9 COPD type: unspecified COPD
[2025-01-19] VITALS (23 sets, daily range): BP systolic 97–149; BP diastolic 54–85; PULSE 53–68; RESP 12–28; TEMP 36.3–36.7; O2SAT 91–97
--- NOTE | 2025-01-19 01:19 | ECG_ITS ---
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 Measurements Intervals [place] Rate: 58 P: 64 DE: 190 QRS: 3 QRSD: 130 T: 46 QT: 449 QTc: 442 Interpretive Statements SINUS BRADYCARDIA POSSIBLE RIGHT VENTRICULAR CONDUCTION DELAY [RSR (QR) IN V1/V2] Compared to ECG 01/18/2025 23:40:26 Sinus rhythm no longer present Ventricular premature complex(es) no longer present Incomplete right bundle-branch block no longer present ST (T wave) deviation no longer present Electronically Signed On 01-19-2025 16:31:44 CDT by Delores Thomas M.D. [email or web address] [id number]
[2025-01-19] MEDS: enoxaparin 120 mg/0.8 mL Syringe 110 MG SUBCUT (03:18)
--- NOTE | 2025-01-19 06:25 | PM.HP ---
Providers/Chief Complaint Admitting Physician: Aura Velasco MD Primary Care Provider: Fátima Gastelum MD Chief Complaint: cp, unstable angina History of Present Illness Polo Britt is a 64 year old male with past medical history significant for cardiovascular risk factors and events. Patient has a history of a total of 3 stents placement 2 in 2017 1 in 2018. Patient related that the last 1 to 2 weeks he had been having chest pain off-and-on and then finally he went into cardiology office of Dr. Knight whom he normally sees as having chest pain there. Dr. Salazar referred him to come to the emergency room for further evaluation of care. Dr. Thomas was on-call and I called Dr. Thomas and discussed care regarding this patient. I have seen and evaluated the patient patient seem to be stable did not and was not having chest pain in the emergency room. Patient had received some aspirin. Was not on heparin drip at the time of my evaluation. There were no beds on stepdown unit patient is to go to [facility] Medical floor. Case discussed with cardiology yesterday patient on Lovenox since medical floor could not do heparin drip. Patient was placed on therapeutic Lovenox. Home medication optimized. He is kept n.p.o. after midnight except for meds. Patient to be followed up with cardiology today for further optimization of care. Patient initial troponin was 24 which trended down to 23 and then the delta troponin was 0.39. Patient did not have any further chest pain during his stay in the hospital. Review of Systems General: Reports: 10 or more systems reviewed and unremarkable except in HPI and below Medications/Allergies Home Medications ?Medication ?Instructions ?Recorded ?Confirmed ?Last Taken ?Type aspirin 81 mg tablet,delayed 81 mg PO DAILY 11/23/19 01/19/25 1 Day Ago History release (Adult Low Dose Aspirin) ~01/18/25 81 levothyroxine 100 mcg capsule 100 mcg PO DAILY 11/23/19 01/19/25 1 Day Ago History ~01/18/25 100 nitroglycerin 0.4 mg sublingual 0.4 mg sublingual Q5M PRN Chest 11/23/19 01/19/25 05/01/22 History tablet (Nitrostat) Pain carvedilol 12.5 mg tablet 12.5 mg PO BID 3 months #180 tabs 02/16/20 01/19/25 1 Day Ago Rx ~01/18/25 12.5 albuterol sulfate 90 mcg/actuation 2 puff inhalation Q6H PRN 09/19/20 01/19/25 Unknown History aerosol inhaler Shortness Of Breath Or Wheezing ticagrelor 90 mg tablet (Brilinta) 90 mg PO BID #60 tabs 12/19/21 01/19/25 1 Day Ago Rx ~01/18/25 lisinopril 20 0.5 tab PO DAILY 04/22/22 01/19/25 1 Day Ago History mg-hydrochlorothiazide 25 mg tablet ~01/18/25 0.5 metformin 500 mg tablet 750 mg PO BID 04/22/22 01/19/25 1 Day Ago History ~01/18/25 750 fluticasone fur. 100 mcg-umeclid 1 inh inhalation DAILY 05/01/22 01/19/25 1 Day Ago History 62.5 mcg-vilant 25 mcg ~01/18/25 inhalat.powder (Trelegy Ellipta) montelukast 10 mg tablet 10 mg PO DAILY 05/01/22 01/19/25 1 Day Ago History ~01/18/25 10 atorvastatin 40 mg tablet 40 mg PO DAILY #90 tabs 05/14/22 01/19/25 1 Day Ago Rx ~01/18/25 40 amlodipine 5 mg tablet 5 mg PO DAILY #30 tabs 07/18/24 01/19/25 1 Day Ago Rx ~01/18/25 5 isosorbide mononitrate 30 mg 30 mg PO DAILY #90 tabs 01/18/25 01/19/25 1 Day Ago Rx tablet,extended release 24 hr ~01/18/25 30 nitroglycerin 0.4 mg sublingual 0.4 mg sublingual Q5M PRN chest 01/18/25 01/19/25 Unknown Rx tablet pain #25 tabs Allergies Allergy/AdvReac Type Severity Reaction Status Date / Time No Known Allergies Allergy Verified 01/18/25 15:22 PFSH Acute PFSH: Medical History Hypothyroidism Diabetes mellitus Tobacco dependency Hyperlipidemia Coronary artery disease BPH (benign prostatic hyperplasia) COPD (chronic obstructive pulmonary disease) History of ST elevation myocardial infarction (STEMI) HTN (hypertension) Surgical History S/P appendectomy S/P cardiac catheterization [facility] History of coronary angioplasty with insertion of stent (~2017) Family History Other Cancer Diabetes Heart disease Hypertension Denies family history of Anesthesia complication Bleeding disorder Social History Smoking and tobacco/nicotine status: former use of tobacco/nicotine Second hand smoke exposure: No Alcohol intake: current Alcohol intake frequency: holidays/special occasions only Alcohol type: beer Substance/Drug Use: never Adopted: No Caregiver/support person: Yes Lives independently: Yes Household members: spouse Housing: House Marital status: service: No Current occupational status: retired Current occupational exposures/hazards: No Pets and animals: No Sexually active: Yes Do you think of yourself as: Straight/Heterosexual Current gender identity: Male Elisabeth/Bahai: Spiritism Vitals/I&O/Wt Last Vital Signs Temp 98.1 F 01/19/25 05:42 Pulse 68 01/19/25 05:42 Resp 18 01/19/25 05:42 BP 149/85 01/19/25 05:42 Pulse Ox 94 01/19/25 05:42 O2 Del Method Room Air 01/18/25 23:54 01/18/25 01/18/25 01/19/25 14:59 22:59 06:59 Intake Total 240 / 240 Balance 240 / 240 Weight last 48 hrs Weight 104.326 kg Weight 104.326 kg Weight 106.141 kg Data 01/18/25 18:34 01/18/25 18:34 A&P Assessment and plan (1) Atherosclerotic heart disease of [place] coronary artery with unstable angina pectoris: Patient with unstable angina Continue anticoagulant with Lovenox at this time patient destination is [facility] consulted with Dr. Thomas. Patient troponin had trending down Patient is n.p.o. after midnight awaiting for further cardiology input regarding patient's hospitalization. Since patient is NSTEMI he meets inpatient criteria for at least 2 midnights unless cardiology dictates otherwise (2) Chest pain: Keep patient on telemetry bed search Continue nitrates antiplatelets with aspirin anticoagulant with therapeutic Lovenox Follow-up with cardiology recommendation (3) Diabetes mellitus: Patient is diabetic Patient is n.p.o. Gentle hydration initiated Patient be with Accu-Chek every 4 hours On a sliding scale insulin if needed Patient is on metformin at home Will try to hold metformin (4) BPH (benign prostatic hyperplasia): This is a history continue to monitor as usual (5) COPD (chronic obstructive pulmonary disease): COPD. Patient is not in any acute exacerbation (6) Coronary artery disease: Coronary artery disease known history patient currently came in with unstable angina and doing fairly well workup and care in progress (7) Unstable angina: Unstable angina as addressed (8) History of ST elevation myocardial infarction (STEMI): Patient with NSTEMI troponin trending down continue antiplatelets anticoagulant nitrates and with cardiology consultation. Dr. Thomas was consulted and will be seeing the patient (9) HTN (hypertension): Fairly controlled we will continue to monitor PDMP PDMP Reviewed: Not Reviewed Attestations Medical Necessity Statement*: Patient came in with unstable angina with NSTEMI meets inpatient criteria cardiology is following up with the patient. Patient has anyway to have at least 2 midnights stay in the hospital for care unless otherwise dictated by the director of staff development. Coding Level of Care Code 14415 Diagnoses Atherosclerosis of [place] coronary artery of [place] heart with unstable angina pectoris I25.110 [place] vs. transplanted heart: [place] heart Chest pain R07.9 Type 2 diabetes mellitus without complication, without long-term current use of insulin E11.9 Diabetes mellitus type: type 2 Diabetes mellitus retirement insulin use: without director behavioral health use Diabetes mellitus complication status: without complication BPH (benign prostatic hyperplasia) N40.0 Chronic obstructive pulmonary disease, unspecified COPD type J44.9 COPD type: unspecified COPD Coronary artery disease involving [place] coronary artery of [place] heart without angina pectoris I25.10 Unstable angina I20.[address] elevation myocardial infarction (STEMI) I25.2 Primary hypertension I10 Hypertension type: primary hypertension Time Spent (min) 69
[2025-01-19 07:18] LABS: Basophils # 0.1 10^3/uL (0.0-0.1); Basophils % 1.1 %; Eosinophils # 0.5 10^3/uL (0.0-0.8); Eosinophils % 9.2 %; Hematocrit 40.8 % (37-53); Lymphocytes % 37.9 %; Mean Corpuscular HGB Conc 32.8 g/dL (30-55); Mean Corpuscular Hemoglobin 30.5 pg (27-33); Mean Corpuscular Volume 92.7 fl (82-101); Mean Platelet Volume 9.6 fL (7.4-10.4); Monocytes # 0.6 10^3/uL (0.2-0.9); Monocytes % 11.7 %; Neutrophils # 2.11 10^3/uL (1.8-7.7); Neutrophils % 39.7 %; Nucleated Red Blood Cells % 0 %; Platelet Count 177 10^3/cmm (157-399); Red Cell Distribution Width 12.8 % (12.1-15.1); White Blood Count 5.31 10^3/uL (3.29-11.43)
[2025-01-19 07:45] LABS: Alanine Aminotransferase 48 U/L (0-41); Albumin Level 3.6 g/dL (3.5-5.2); Alkaline Phosphatase 102 U/L (40-130); Anion Gap 15.1 (5-19); Aspartate Amino Transferase 33 U/L (0-40); Blood Urea Nitrogen 15 mg/dL (8-23); Calcium 8.5 mg/dL (8.5-10.5); Carbon Dioxide 20 mmol/L (22-29); Chloride 109 mmol/L (98-107); Creatinine Clr Calc Pharmacy 140.9113; Globulin 3.4 g/dL (1.3-4.6); Glomerular Filtration Rate 114.3 mL/min (90-130); Glucose 127 mg/dL (65-115); NT Pro B Type Natriuretic Pept 113 pg/mL (0-125); Osmolality Calculated 292 mOsm/kg (285-295); Potassium 4.1 mmol/L (3.5-5.1); Sodium 140 mmol/L (136-145); Total Bilirubin 0.8 mg/dL (0.15-1.2)
[2025-01-19] MEDS: ipratropium-albuterol 3 mL Neb INHALATION (08:02)
[2025-01-19] MEDS: budesonide 0.5 mg/2 mL Neb INHALATION (08:02)
[2025-01-19] MEDS: docusate sodium 100 mg Capsule PO (08:30)
[2025-01-19] MEDS: ticagrelor 90 mg Tablet PO ×2 (08:30→17:29)
[2025-01-19] MEDS: isosorbide mononitrate ER 30 mg Tablet PO (08:30)
[2025-01-19] MEDS: montelukast sodium 10 mg Tablet PO (08:30)
[2025-01-19] MEDS: atorvastatin 40 mg Tablet PO (08:30)
[2025-01-19] MEDS: sodium chloride 0.9% 1,000 ML 75 ML IV (08:30)
[2025-01-19] MEDS: carvedilol 12.5 mg Tablet PO ×2 (08:30→17:29)
[2025-01-19] MEDS: aspirin 81 mg EC Tablet PO (08:30)
[2025-01-19] MEDS: levothyroxine 100 mcg Tablet PO (08:30)
[2025-01-19] MEDS: amlodipine 5 mg Tablet PO (08:30)
[2025-01-19] MEDS: pantoprazole DR 40 mg Tablet PO (08:31)
[2025-01-19 09:29] LABS: Estmated Average Glucose 163; Hemoglobin A1C 7.3 % (4.0-6.0)
[2025-01-19 09:54] LABS: Iron 73 ug/dL (59-158); Percent Saturation 30.5 % (20-50); Total Iron Binding Capacity 239 mcg/dl; Unsaturated Iron Binding 166 ug/dL (112-347); Vitamin B12 460 pg/mL (232-1245)
[2025-01-19] MEDS: sodium chloride 0.9% 1,000 ML 50 ML IV (11:23)
[2025-01-19] MEDS: aspirin 325 mg Tablet PO (11:23)
[2025-01-19] MEDS: diphenhydrAMINE 50 mg Capsule PO (11:23)
--- NOTE | 2025-01-19 12:44 | W.PM.OPSUD ---
Surgery/Procedure H&P Update DATE OF PROCEDURE: January 19, 2025 DATE H&P PERFORMED: 01/19/25 H&P UPDATE INFORMATION: I have reviewed H&P completed within last 30 days, I have examined patient prior to procedure and No changes to prior documentation PREOP DIAGNOSIS: Unstable angina, coronary artery disease PLANNED PROCEDURE: Operation Date: 01/19/25 12:00 Proposed Procedures p Cardiac Catheterization(Not Applicable) - Darrel Kaur MD PATIENT REASSESSED PRIOR TO SEDATION, WITH NO CHANGE NOTED: Yes PHYSICAL EXAM: alert, oriented x 3, clear to auscultation bilaterally, regular rate & rhythm and operative site marked AIRWAY EVAL/ANESTHESIA PLAN: ASA II, Risks, benefits & alternatives of sedation and/or procedure discussed and Patient agrees to continue as planned ADDITIONAL INFORMATION: Patient has been explained all risk-benefit and alternative for the procedure. Patient understand 2% risk of stroke major bleed, patient stent 5 to 6% risk of minor bleeding oozing infection hematoma pseudoaneurysm contrast induced nephropathy urgent emergent vascular or bypass surgery. Patient would like to proceed with it
--- NOTE | 2025-01-19 13:56 | PM.PROC ---
Procedure Note: Date of procedure: 01/19/25 Pre-procedure diagnosis: Unstable angina Procedure: Left heart cath was performed noted to have mid LAD high-grade stenosis it was treated with single drug-eluting stent Left circumflex has luminal irregularity while obtuse marginal 1 is a moderate to large size vessel with proximal moderate to high-grade lesion treated with another drug-eluting stent both stents were postdilated noncompliant balloon Left main has luminal irregularity without significant stenosis RCA has luminal irregularity without significant stenosis Left ventriculography of performed ejection fraction normal 65% Left ventricular end-diastolic pressure was 15 mmHg Plan: Continue aspirin statin beta-radha and ticagrelor Brilinta 90 mg p.o. twice daily, aspirin 81 mg once a day Continue IV fluid for 100 mL/h for next 1 L Full note to be dictated Possible discharge in the morning Coding Level of Care Code Acute Code for Perla Hanson
--- NOTE | 2025-01-19 14:02 | USCV_ITS ---
Polo Britt Age: 64 Gender: M : 1960 Exam Date: 01/19/2025 15:55 Ordering Phys: Dale Pham MD Technologist: Demetri Wilburn Exam Location: [facility] [place] Indication: htn, unstable angina BP: 123 / 76 HR: 56 Rhythm: Sinus Technical Quality: Adequate MEASUREMENTS (Male / Female) Normal Values 2D ECHO LV Diastolic Diameter PLAX 4.4 cm 4.2 - 5.9 / 3.9 - 5.3 cm IVS Diastolic Thickness 1.1 cm 0.6 - 1.0 / 0.6 - 0.9 cm IVS Systolic Thickness 1.5 cm LVPW Diastolic Thickness 2.0 cm 0.6 - 1.0 / 0.6 - 0.9 cm LVPW Systolic Thickness 2.6 cm LVOT Diameter 2.0 cm LV Ejection Fraction 2D Teich 66.4 % LV Ejection Fraction MOD 4C 67.8 % LV Ejection Fraction MOD 2C 70.6 % LV Ejection Fraction 2C AL 71.8 % LA Diameter 3.6 cm RA Systolic Volume 4C AL 40.8 ml RA Systolic Volume 4C MOD 41.0 ml LA Sys Volume AL 54.1 cm cubed LA Sys Volume Index AL 23.0 cm cubed/m squared Aorta at Sinotubular Diameter 2.3 cm IVC Diameter 1.8 cm M-MODE LA Ao Ratio MM 1.2 AV Cusp Separation MM 1.7 cm DOPPLER AV Peak Velocity 153.0 cm/s LVOT Peak Velocity 75.0 cm/s AV Area Cont Eq vti 1.5 cm squared AV Area Cont Eq pk 1.6 cm squared MV Peak Velocity 66.0 cm/s MV Area PHT 3.2 cm squared Mitral E to A Ratio 0.9 TV Peak Velocity 251.0 cm/s TR Peak Velocity 276.0 cm/s TR Peak Gradient 30.5 mmHg TR Mean Velocity 214.0 cm/s TR Mean Gradient 19.6 mmHg TR Velocity Time Integral 72.9 cm PV Peak Velocity 103.0 cm/s RV Ejection Time 0.4 s FINDINGS Left Ventricle Normal left ventricular size, systolic function and wall thickness, with no regional wall motion abnormalities. Left ventricular ejection fraction is estimated at 60 %. Grade I/IV diastolic dysfunction (abnormal relaxation filling pattern), normal to mildly elevated filling pressures. Right Ventricle The right ventricle is normal in size and function. Right Atrium The right atrium is normal in size. Left Atrium The left atrium is normal in size. Mitral Valve Structurally normal mitral valve without significant stenosis or prolapse. There is no mitral regurgitation. Aortic Valve Moderate aortic valve calcification. No aortic valve stenosis. Trace aortic valve regurgitation. Tricuspid Valve Structurally normal tricuspid valve without significant stenosis or regurgitation. Pulmonary artery systolic pressure is normal. Pulmonic Valve Mild pulmonary valve regurgitation. Pericardium Normal pericardium without effusion. Aorta Normal ascending aorta dimension. IVC The inferior vena cava appears normal. CONCLUSIONS Normal left ventricular size, systolic function and wall thickness, with no regional wall motion abnormalities. Left ventricular ejection fraction is estimated at 60 %. Grade I/IV diastolic dysfunction (abnormal relaxation filling pattern), normal to mildly elevated filling pressures. Moderate aortic valve calcification. No aortic valve stenosis. Trace aortic valve regurgitation. Mild pulmonary valve regurgitation. There is no pericardial effusion. Right atrial pressure is around 5 mm of mercury. Darrel Kaur MD (Electronically Signed) Final Date: 19 Jan 2025 19:31 S
--- NOTE | 2025-01-19 14:07 | PC.NURSE ---
received from cardiac chemical lab supervisor via w/c at 1350.report received.pt is alert and awake.denies pain at present.sr/sb on monitor.right wrist with tr band on and inflated.right hand is warm to touch and with brisk capillary refill.no hematoma noted.palpable radial pulse noted.pt instructed in activity restrictions s/p radial artery procedure...and instructed to notify staff for any bleeding,pain,numbness,sob,cp,or for for any concerns at all.pt verb understanding of instructions
[2025-01-19 14:21] LABS: Glucose Point of Care 126 mg/dL (70-110)
--- NOTE | 2025-01-19 14:26 | P.PN_ITS ---
Subjective 2 Subjective: Admitted overnight. Patient denies any further chest pain. Denies any nausea, vomiting. Blood pressure slightly elevated. Plan for cardiac angiogram later the day. Vitals/I&O/Wt Last Vital Signs Temp 97.6 F 01/19/25 14:09 Pulse 64 01/19/25 14:09 Resp 12 01/19/25 14:09 BP 123/76 01/19/25 14:09 Pulse Ox 96 01/19/25 14:09 O2 Del Method Room Air 01/19/25 14:09 01/18/25 01/19/25 01/19/25 22:59 06:59 14:59 Intake Total 240 / 240 411.25 / 411.25 Balance 240 / 240 411.25 / 411.25 Weight last 48 hrs Weight 104.326 kg Weight 104.326 kg Weight 106.141 kg Physical Exam 2 Narrative: GENERAL: The patient is alert and oriented times three. Not in any acute distress. HEENT: No significant pallor, icterus or lymphadenopathy.Oral cavity: There are no mucous membrane lesions. NECK: Trachea appears to be central. No masses noted. No JVD or thyromegaly appreciated. RESPIRATORY: Chest is symmetrical. No intercostals muscle retraction or any accessory muscle activation. There is no chest wall tenderness. Breath sounds are heard bilaterally. No rales or rhonchi heard. No evidence of any consolidation. BREASTS: Deferred. HEART: The heart sounds are normal. No S3 or S4. No significant murmurs. No pericardial rub ABDOMEN: No vessel pulsations or distention. No tenderness. No organomegaly appreciated. Bowel sounds are normally heard. : Deferred. RECTAL: Deferred. LYMPHATIC: No lymphadenopathy noted in the neck. EXTREMITIES: No edema or cyanosis. No clubbing. Hyperpigmented skin. Peripheral pulses are palpable but somewhat weak MUSCULOSKELETAL: No acute joint deformities or swelling SKIN: There are no significant rashes or ecchymosis NEUROPSYCHIATRIC: The patient is alert and oriented x3. Appears to be in a good mood. No tremors or rigidity noted. Data 01/19/25 06:59 01/19/25 06:59 A&P Assessment and plan (1) Atherosclerotic heart disease of [place] coronary artery with unstable angina pectoris: History of CAD with PCI in the past. Unstable angina. Appreciate troponin. Check echocardiogram. Plan for cardiac angiogram within the day. Continue with home dose of aspirin, Brilinta, statin, Coreg. Check A1c, lipid panel. Continue with full dose Lovenox 1 mg/kg body weight every 12 hourly. (2) Diabetes mellitus: Check A1c. Only on metformin as an outpatient. Start Lantus and sliding scale. (3) BPH (benign prostatic hyperplasia): (4) COPD (chronic obstructive pulmonary disease): COPD. Patient is not in any acute exacerbation. DuoNeb as needed. (5) History of ST elevation myocardial infarction (STEMI): Patient with NSTEMI troponin trending down continue antiplatelets anticoagulant nitrates and with cardiology consultation. Dr. Thomas was consulted and will be seeing the patient (6) HTN (hypertension): Goal blood pressure less than 140/90 mmHg. Blood pressure is elevated. Continue with home dose of amlodipine, Coreg, Imdur. Hold off on home dose of lisinopril hydrochlorothiazide for now as patient is going for cardiac angiogram. Plan Full code N.p.o., carb consistent diet postoperatively Full dose Lovenox was sufficient for DVT prophylaxis Protonix for PUD prophylaxis. PDMP PDMP Reviewed: Not Reviewed Attestations 2 Medical Necessity Statement*: Require further hospitalization for management of unstable angina with high concerns for CAD in a patient with history of ST elevation ND, uncontrolled hypertension, type 2 diabetes mellitus Diagnoses Atherosclerosis of [place] coronary artery of [place] heart with unstable angina pectoris I25.110 [place] vs. transplanted heart: [place] heart Type 2 diabetes mellitus without complication, without long-term current use of insulin E11.9 Diabetes mellitus type: type 2 Diabetes mellitus [facility] insulin use: without [facility] use Diabetes mellitus complication status: without complication BPH (benign prostatic hyperplasia) N40.0 Chronic obstructive pulmonary disease, unspecified COPD type J44.9 COPD type: unspecified COPD History of ST elevation myocardial infarction (STEMI) I25.2 Primary hypertension I10 Hypertension type: primary hypertension
[2025-01-19 16:58] LABS: Glucose Point of Care 230 mg/dL (70-110)
[2025-01-19] MEDS: insulin lispro 100 unit/1 mL SUBCUT (17:29)
[2025-01-19 19:57] LABS: Glucose Point of Care 94 mg/dL (70-110)
--- NOTE | 2025-01-19 21:34 | PC.NURSE ---
Removed TR band and 2000, Site looks good, no breuising or bleeding, 2x2 with tegaderm applied over site.
[2025-01-20] VITALS (38 sets, daily range): BP systolic 99–139; BP diastolic 60–91; PULSE 53–71; RESP 11–21; TEMP 36.6–36.7; O2SAT 91–97
[2025-01-20] MEDS: enoxaparin 100 mg/mL Syringe SUBCUT (03:11)
[2025-01-20 04:58] LABS: Basophils # 0.1 10^3/uL (0.0-0.1); Basophils % 0.9 %; Eosinophils # 0.4 10^3/uL (0.0-0.8); Eosinophils % 5.7 %; Hematocrit 40.8 % (37-53); Lymphocytes # 1.7 10^3/uL (0.8-4.8); Lymphocytes % 22.4 %; Mean Corpuscular HGB Conc 30.9 g/dL (30-55); Mean Corpuscular Hemoglobin 30.2 pg (27-33); Mean Corpuscular Volume 97.8 fl (82-101); Mean Platelet Volume 9.9 fL (7.4-10.4); Monocytes # 0.7 10^3/uL (0.2-0.9); Monocytes % 9.6 %; Neutrophils # 4.53 10^3/uL (1.8-7.7); Neutrophils % 61.1 %; Nucleated Red Blood Cells % 0 %; Platelet Count 148 10^3/cmm (157-399); Red Blood Count 4.17 10^6/uL (3.85-5.65); Red Cell Distribution Width 12.8 % (12.1-15.1); White Blood Count 7.41 10^3/uL (3.29-11.43)
[2025-01-20 05:18] LABS: Alanine Aminotransferase 52 U/L (0-41); Albumin Level 3.7 g/dL (3.5-5.2); Alkaline Phosphatase 104 U/L (40-130); Blood Urea Nitrogen 15 mg/dL (8-23); Calcium 8.2 mg/dL (8.5-10.5); Carbon Dioxide 18 mmol/L (22-29); Chloride 105 mmol/L (98-107); Globulin 2.8 g/dL (1.3-4.6); Glomerular Filtration Rate 114.3 mL/min (90-130); Glucose 126 mg/dL (65-115); Osmolality Calculated 284 mOsm/kg (285-295); Sodium 136 mmol/L (136-145); Total Bilirubin 1.2 mg/dL (0.15-1.2); Total Protein 6.5 g/dL (6.6-8.7)
[2025-01-20 05:20] LABS: Anion Gap 17.3 (5-19); Aspartate Amino Transferase 39 U/L (0-40); Potassium 4.3 mmol/L (3.5-5.1)
[2025-01-20 05:29] LABS: Chol HDL Ratio 4.33 mg/dL (1.0-5.00); Cholesterol 104 mg/dL (0-200); HDL Cholesterol 24 mg/dL (60-100); LDL Cholesterol Calculated 49 mg/dL (50-129); Triglycerides 154 mg/dL (0-150); VLDL Cholestrol Calculation 31 mg/dL (0-30)
[2025-01-20 05:37] LABS: Glucose Point of Care 153 mg/dL (70-110)
[2025-01-20 06:43] LABS: Folate Level 17.2 ng/mL (4.5-32.2)
[2025-01-20] MEDS: insulin lispro 100 unit/1 mL SUBCUT (07:57)
[2025-01-20] MEDS: ticagrelor 90 mg Tablet PO (07:58)
[2025-01-20] MEDS: aspirin 81 mg EC Tablet PO (07:58)
[2025-01-20] MEDS: acetaminophen 325 mg Tablet 650 MG PO (07:58)
[2025-01-20] MEDS: amlodipine 5 mg Tablet PO (07:59)
[2025-01-20] MEDS: atorvastatin 40 mg Tablet PO (07:59)
[2025-01-20] MEDS: levothyroxine 100 mcg Tablet PO (07:59)
[2025-01-20] MEDS: isosorbide mononitrate ER 30 mg Tablet PO (07:59)
[2025-01-20] MEDS: pantoprazole DR 40 mg Tablet PO (07:59)
[2025-01-20] MEDS: montelukast sodium 10 mg Tablet PO (07:59)
--- NOTE | 2025-01-20 08:20 | PM.DCS ---
Discharge Providers Date of Admission: 01/18/25 20:42 Date of Discharge: January 20, 2025 Attending Provider at Admission: Aura Velasco MD Attending Provider at Discharge: Dale Pham MD Primary Care Provider: Fátima Gastelum MD Diagnoses at Discharge Discharge Diagnosis (1) Atherosclerotic heart disease of [place] coronary artery with unstable angina pectoris: Status: Acute Qualifiers: [place] vs. transplanted heart: [place] heart Qualified Code(s): I25.110 - Atherosclerotic heart disease of [place] coronary artery with unstable angina pectoris (2) Diabetes mellitus: Status: Acute Qualifiers: Diabetes mellitus complication status: without complication Diabetes mellitus intermediate school teacher insulin use: without intermediate school teacher use Diabetes mellitus type: type 2 Qualified Code(s): E11.9 - Type 2 diabetes mellitus without complications (3) BPH (benign prostatic hyperplasia): Status: Acute (4) COPD (chronic obstructive pulmonary disease): Status: Acute Qualifiers: COPD type: unspecified COPD Qualified Code(s): J44.9 - Chronic obstructive pulmonary disease, unspecified (5) History of ST elevation myocardial infarction (STEMI): Status: Acute (6) HTN (hypertension): Status: Acute Qualifiers: Hypertension type: primary hypertension Qualified Code(s): I10 - Essential (primary) hypertension Reason for Visit Reason for Visit: cp, unstable angina Brief History: Polo Britt is a 64 year old male with past medical history significant for cardiovascular risk factors and events. Patient has a history of a total of 3 stents placement 2 in 2017 1 in 2019. Patient related that the last 1 to 2 weeks he had been having chest pain off-and-on and then finally he went into cardiology office of Dr. Knight whom he normally sees as having chest pain there. Dr. Salazar referred him to come to the emergency room for further evaluation of care. Dr. Thomas was on-call and I called Dr. Thomas and discussed care regarding this patient. Hospital Course Hospital Course He was admitted to hospital for evaluation of unstable angina. Cardiology was consulted and he underwent cardiac angiogram which showed him to have mid LAD high-grade stenosis it was treated with single drug-eluting stent, Left circumflex has luminal irregularity while obtuse marginal 1 is a moderate to large size vessel with proximal moderate to high-grade lesion treated with another drug-eluting stent both stents were postdilated noncompliant balloon, Left main has luminal irregularity without significant stenosis, RCA has luminal irregularity without significant stenosis, Left ventriculography of performed ejection fraction normal 65%, Left ventricular end-diastolic pressure was 15 mmHg. Has been discharged in medically stable condition advised to follow-up with the PCP within next 2 weeks and with cardiology team onset appointment. He secondary taking his dual antibody therapy as before. Physical Exam Narrative: GENERAL: The patient is alert and oriented times three. Not in any acute distress. HEENT: No significant pallor, icterus or lymphadenopathy.Oral cavity: There are no mucous membrane lesions. NECK: Trachea appears to be central. No masses noted. No JVD or thyromegaly appreciated. RESPIRATORY: Chest is symmetrical. No intercostals muscle retraction or any accessory muscle activation. There is no chest wall tenderness. Breath sounds are heard bilaterally. No rales or rhonchi heard. No evidence of any consolidation. BREASTS: Deferred. HEART: The heart sounds are normal. No S3 or S4. No significant murmurs. No pericardial rub ABDOMEN: No vessel pulsations or distention. No tenderness. No organomegaly appreciated. Bowel sounds are normally heard. : Deferred. RECTAL: Deferred. LYMPHATIC: No lymphadenopathy noted in the neck. EXTREMITIES: No edema or cyanosis. No clubbing. Hyperpigmented skin. Peripheral pulses are palpable but somewhat weak MUSCULOSKELETAL: No acute joint deformities or swelling SKIN: There are no significant rashes or ecchymosis NEUROPSYCHIATRIC: The patient is alert and oriented x3. Appears to be in a good mood. No tremors or rigidity noted. Discharge Data Studies Completed and Pending Completed Studies During Hospitalization Category Date Time Status XR chest 1V portable [id number] Stat Exams 01/18/25 18:15 Completed CV. 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 Echocardiogram CONCLUSIONS Normal left ventricular size, systolic function and wall thickness, with no regional wall motion abnormalities. Left ventricular ejection fraction is estimated at 60 %. Grade I/IV diastolic dysfunction (abnormal relaxation filling pattern), normal to mildly elevated filling pressures. Moderate aortic valve calcification. No aortic valve stenosis. Trace aortic valve regurgitation. Mild pulmonary valve regurgitation. There is no pericardial effusion. Right atrial pressure is around 5 mm of mercury. Darrel Kaur MD (Electronically Signed) Final Date: 19 Jan 2025 19:31 Laboratory Results WBC 7.41 10^3/uL (3.29-11.43) 01/20/25 04:36 RBC 4.17 10^6/uL (3.85-5.65) 01/20/25 04:36 Hgb 12.60 g/dL (11.27-16.99) 01/20/25 04:36 Hct 40.8 % (37-53) 01/20/25 04:36 MCV 97.8 fl (82-101) D 01/20/25 04:36 MCH 30.2 pg (27-33) 01/20/25 04:36 MCHC 30.9 g/dL (30-55) D 01/20/25 04:36 RDW 12.8 % (12.1-15.1) 01/20/25 04:36 Plt Count 148 10^3/cmm (157-399) L 01/20/25 04:36 MPV 9.9 fL (7.4-10.4) 01/20/25 04:36 Neut % (Auto) 61.1 % 01/20/25 04:36 Lymph % (Auto) 22.4 % 01/20/25 04:36 [place] % (Auto) 9.6 % 01/20/25 04:36 Eos % (Auto) 5.7 % 01/20/25 04:36 Baso % (Auto) 0.9 % 01/20/25 04:36 Neut # (Auto) 4.53 10^3/uL (1.8-7.7) 01/20/25 04:36 Lymph # (Auto) 1.7 10^3/uL (0.8-4.8) 01/20/25 04:36 [place] # (Auto) 0.7 10^3/uL (0.2-0.9) 01/20/25 04:36 Eos # (Auto) 0.4 10^3/uL (0.0-0.8) 01/20/25 04:36 Baso # (Auto) 0.1 10^3/uL (0.0-0.1) 01/20/25 04:36 Nucleated RBC % (auto) 0 % 01/20/25 04:36 Nucleated RBCs # 0.0 /100WBC 01/20/25 04:36 Sodium 136 mmol/L (136-145) 01/20/25 04:36 Potassium 4.3 mmol/L (3.5-5.1) 01/20/25 04:36 Chloride 105 mmol/L (98-107) 01/20/25 04:36 Carbon Dioxide 18 mmol/L (22-29) L 01/20/25 04:36 Anion Gap 17.3 (5-19) 01/20/25 04:36 BUN 15 mg/dL (8-23) 01/20/25 04:36 Creatinine 0.7 mg/dL (0.7-1.2) 01/20/25 04:36 GFR Calculation 114.3 mL/min (90-130) 01/20/25 04:36 Glucose 126 mg/dL (65-115) H 01/20/25 04:36 POC Glucose 153 mg/dL (70-110) H 01/20/25 05:22 Estimat Average Glucose 163 01/19/25 06:59 Hemoglobin A1c 7.3 % (4.0-6.0) H 01/19/25 06:59 Calculated Osmolality 284 mOsm/kg (285-295) L 01/20/25 04:36 Calcium 8.2 mg/dL (8.5-10.5) L 01/20/25 04:36 Magnesium 2.0 mg/dL (1.7-2.3) 01/20/25 04:36 Iron 73 ug/dL (59-158) 01/19/25 06:59 TIBC 239 mcg/dl 01/19/25 06:59 % Saturation 30.5 % (20-50) 01/19/25 06:59 Unsat Iron Binding 166 ug/dL (112-347) 01/19/25 06:59 Total Bilirubin 1.2 mg/dL (0.15-1.2) 01/20/25 04:36 AST 39 U/L (0-40) 01/20/25 04:36 ALT 52 U/L (0-41) H 01/20/25 04:36 Alkaline Phosphatase 104 U/L (40-130) 01/20/25 04:36 Troponin T Baseline 24 ng/L (0-15) H 01/18/25 18:34 Troponin T 120 Minute 23.61 ng/L (0-15) H 01/18/25 20:52 Delta Troponin T -0.39 ABS# (0-10) L 01/18/25 20:52 Troponin T Hi Sens 6Hr 25.60 ng/L (0-15) H 01/19/25 00:40 Troponin T Hi Sens 6Hr Delta 1.60 ng/L (0-12) 01/19/25 00:40 NT-Pro-B Natriuret Pep 113 pg/mL (0-125) 01/19/25 06:59 Total Protein 6.5 g/dL (6.6-8.7) L 01/20/25 04:36 Albumin 3.7 g/dL (3.5-5.2) 01/20/25 04:36 Globulin 2.8 g/dL (1.3-4.6) 01/20/25 04:36 Triglycerides 154 mg/dL (0-150) H 01/20/25 04:36 Cholesterol 104 mg/dL (0-200) 01/20/25 04:36 LDL Cholesterol, Calc 49 mg/dL (50-129) L 01/20/25 04:36 Total VLDL Cholesterol 31 mg/dL (0-30) H 01/20/25 04:36 HDL Cholesterol 24 mg/dL (60-100) L 01/20/25 04:36 Cholesterol/HDL Ratio 4.33 mg/dL (1.0-5.00) 01/20/25 04:36 Vitamin B12 460 pg/mL (232-1245) 01/19/25 06:59 Folate 17.2 ng/mL (4.5-32.2) 01/20/25 04:36 TSH 9.10 uIU/mL (0.27-4.20) H 01/19/25 06:59 Vitals Last Vital Signs Temp 98.0 F 01/20/25 07:38 Pulse 68 01/20/25 07:38 Resp 15 01/20/25 07:38 BP 139/75 01/20/25 07:38 Pulse Ox 97 01/20/25 07:38 O2 Del Method Room Air 01/20/25 07:38 Discharge Plan Discharge Patient Disposition: Home Condition: Stable Prescriptions: Continued albuterol sulfate 90 mcg/actuation HFA aerosol inhaler 2 puff inhalation Q6H PRN (Reason: Shortness Of Breath Or Wheezing) nitroglycerin [Nitrostat] 0.4 mg tablet, sublingual 0.4 mg SUBLINGUAL Q5M PRN (Reason: Chest Pain) levothyroxine 100 mcg capsule 100 mcg PO DAILY aspirin [Adult Low Dose Aspirin] 81 mg tablet,delayed release (DR/EC) 81 mg PO DAILY lisinopril-hydrochlorothiazide 20-25 mg tablet 0.5 tab PO DAILY isosorbide mononitrate 30 mg tablet extended release 24 hr 30 mg PO DAILY Qty: 90 3RF nitroglycerin 0.4 mg tablet, sublingual 0.4 mg sublingual Q5M PRN (Reason: chest pain) Qty: 25 2RF Rx Instructions: do not exceed 3 doses per episode carvedilol 12.5 mg tablet 12.5 mg PO BID 90 Days Qty: 180 3RF Brilinta 90 mg tablet 90 mg PO BID Qty: 60 0RF Rx Instructions: Must make a follow-up for further refills atorvastatin 40 mg tablet 40 mg PO DAILY Qty: 90 3RF amlodipine 5 mg tablet 5 mg PO DAILY Qty: 30 0RF montelukast 10 mg tablet 10 mg PO DAILY Trelegy Ellipta 100-62.5-25 mcg blister with device 1 inh INHALATION DAILY Changed metformin 500 mg tablet 1,000 mg PO BID 30 Days Qty: 120 0RF Rx Instructions: 750mg PO BID Discharge Orders: Discharge Order (Routine); Ordered 01/20/25 Ordered By: Dale Pham Referrals: Fátima Gastelum MD [Primary Care Provider, Internal Medicine] - 2 weeks Referral Note: Patient will need to call the office and make a dicharge appointment on Wednesday. Ally Gallegos NP [Nurse Practitioner, Cardiology] - 2 weeks Referral Note: We have notified your physician's clinic of the need for a follow-up appointment to be scheduled. If you have not heard from them within the next 2 business days, please call them directly. Discharge Diet: Cardiac Discharge Activity: Resume usual activity and Increase activity as tolerated Patient Instructions: Chest Pain Stoplight, Post Angiogram Home Care Instructions Activity Restrictions/Additional Instructions: Check your blood pressure daily at home and maintain a blood pressure diary. Follow-up with the primary care provider within next 2 weeks for further adjustment of antihypertensive. Discharge Attestations Time Spent in Discharge Care*: greater than 30 min Specific Discharge Activities: educating patient, discussing with pcp/other providers, discussing with case sealer/social workers/dc planners, documenting/other paperwork and evaluating patient/reviewing data Status at Discharge: Cognitive status at discharge: cognitively intact, Behavioral status at discharge: cooperative, Functional status at discharge: independent ambulation, Overall status at discharge: patient is back to baseline Quality Metrics Clinical Quality Measures [ No reported AMI, CVA or VTE this stay] Coding Level of Care Code 68654 Total time (in minutes) for Discharge: 65 Diagnoses Atherosclerosis of [place] coronary artery of [place] heart with unstable angina pectoris I25.110 [place] vs. transplanted heart: [place] heart Type 2 diabetes mellitus without complication, without long-term current use of insulin E11.9 Diabetes mellitus complication status: without complication Diabetes mellitus care home insulin use: without intermediate school teacher use Diabetes mellitus type: type 2 BPH (benign prostatic hyperplasia) N40.0 Chronic obstructive pulmonary disease, unspecified COPD type J44.9 COPD type: unspecified COPD History of ST elevation myocardial infarction (STEMI) I25.2 Primary hypertension I10 Hypertension type: primary hypertension
--- NOTE | 2025-01-20 11:30 | PC.NURSE ---
discharge instructions given and explained.pt verb understanding of instructions.discharged via w/c to exit at this time.son to drive pt home.
== END 2025-01-20 11:31 | disposition home or self-care (01) | DRG 322 ==
LOC: ER 19:39 → MEDSURG 22:10 → CSU 01-19 12:10
PROVIDERS: Internal Medicine Cardiovascular Disease; Admitting Provider Internal Medicine; Emergency Provider Emergency Medicine; PCP Internal Medicine; Visit Provider Student in an Organized Health Care Education/Training Program
PROC: 027135Z Dilation of Coronary Artery, Two Arteries with Two Drug-eluting Intraluminal Devices, Percutaneous Approach (ICD-10-PCS; principal; 2025-01-19 12:00)
PROC: 027135Z Dilation of Coronary Artery, Two Arteries with Two Drug-eluting Intraluminal Devices, Percutaneous Approach (ICD-10-PCS; 2025-01-19 12:00)
DX: I25.110 Atherosclerotic heart disease of native coronary artery with unstable angina pectoris (principal); E11.9 Type 2 diabetes mellitus without complications; N40.0 Benign prostatic hyperplasia without lower urinary tract symptoms; J44.9 Chronic obstructive pulmonary disease, unspecified; I25.2 Old myocardial infarction; I10 Essential (primary) hypertension; E78.2 Mixed hyperlipidemia; Z79.02 Long term (current) use of antithrombotics/antiplatelets; Z79.4 Long term (current) use of insulin; Z79.82 Long term (current) use of aspirin; Z79.84 Long term (current) use of oral hypoglycemic drugs; Z87.891 Personal history of nicotine dependence
CPT/HCPCS: 36415; 36416; 71045; 80053; 80061; 82607; 82746; 82962; 83036; 83540; 83550; 83735; 83880; 84443; 84484; 85025; 85347; 93005; 93306; 93458; 94640; 96372; 96374; 96376; 99152; 99153; 99285; C1725; C1769; C1874; C1887; C1894; C9600; C9601; J1644; J1650; J1815; J2250; J3010; J3490; J7030; J7626; J9999; Q0163; Q9967

== ENCOUNTER 2025-07-23 15:32 | Outpatient (CLI) | payer OTHER, SELFPAY ==
--- NOTE | 2025-07-23 15:41 | USCV_ITS ---
Polo Britt Age: 64 Gender: M : 1960 Exam Date: 07/23/2025 15:47 Ordering Phys: Fátima Gastelum MD Technologist: REGLA [place] [facility] [place]ication: stenosis Risk Factors: Previous Vascular Surgery: Right Brachial BP: / Left Brachial BP: / Right Left Velocity (cm/s) Spectral Plaque Velocity (cm/s) Spectral Plaque Syst/Diast Broadening Syst/Diast Broadening 94.70/ 18.10 Prox CCA 85.20 / 23.30 83.80/ 25.40 Mid CCA 84.40 / 28.10 64.80/ 17.00 Distal CCA 62.90 / 22.90 46.80/ 16.50 Prox ICA 55.60 / 19.30 53.80/ 21.20 Mid ICA 47.10 / 14.70 75.60/ 28.00 Distal ICA 77.70 / 28.40 104.30 ECA 75.00 0.70 ICA/CCA 0.90 Antegrade Vertebral Antegrade 44.40/ 15.20 cm/s 42.10/ 14.70 cm/s Tri Subclavian Tri 122.4 161.3 0 0 CONCLUSIONS Right ICA stenosis <50%. Mild atheromatous plaque right carotid bulb/ICA. Left ICA stenosis <50%. Moderate atheromatous plaque left carotid bulb/ICA. Normal antegrade Doppler flow noted in the right vertebral artery. Normal antegrade Doppler flow noted in the left vertebral artery. Mango Martines MD (Electronically Signed) Final Date: 24 July 2025 10:03 S
== END 2025-07-23 15:33 | disposition home or self-care (01) ==
LOC: RAD 15:33
PROVIDERS: PCP Internal Medicine; Visit Provider Internal Medicine
DX: G45.9 Transient cerebral ischemic attack, unspecified (principal)
CPT/HCPCS: 93880

== ENCOUNTER 2025-07-25 07:55 | Outpatient (CLI) | payer OTHER, SELFPAY ==
--- NOTE | 2025-07-25 07:59 | MR_ITS ---
WS: [id number] MRI HEAD WITHOUT CONTRAST TECHNIQUE: Sagittal T1, T2 axial, T2 axial FLAIR, axial and coronal T1 images, axial susceptibility weighted imaging, axial diffusion weighted images, and coronal T2 images were obtained. CLINICAL INFORMATION: TIA COMPARISON: MRI 2007 FINDINGS: No evidence of restricted diffusion to suggest acute ischemia. Ventricular system and basal cisterns are patent. Mild small vessel changes with mild parenchymal volume loss. Normal posterior fossa. Normal vascular flow voids at the skull base. No extra-axial fluid collections. Mild mucosal thickening in the paranasal sinuses. Retention cyst LEFT posterior ethmoid air cells. Mastoid air cells are well aerated. No hemosiderin on susceptibility-weighted images. Normal optic chiasm and pituitary infundibulum. Temporal lobes and hippocampal formations are normal in appearance. MR/MR head wo con* [id number] IMPRESSION: 1. Mild vessel changes with mild parenchymal volume loss only slightly progres sed since 2007. 2. Temporal lobes and hippocampal formations are normal in appearance. 3. No hemosiderin on the susceptibly weighted images. 4. No restricted diffusion to suggest acute ischemia.
== END 2025-07-25 07:56 | disposition home or self-care (01) ==
LOC: RAD 07:55
PROVIDERS: PCP Internal Medicine; Visit Provider Internal Medicine
DX: G45.9 Transient cerebral ischemic attack, unspecified (principal); R90.89 Other abnormal findings on diagnostic imaging of central nervous system
CPT/HCPCS: 70551